=== PATIENT | male | born 1965 | race Caucasian/White ===

== ENCOUNTER 2019-12-11 09:48 | Emergency (ER) | payer OTHER ==
[~2019-12-11] VITALS: Ht 187.9 cm; Wt 83.9 kg
--- NOTE | 2019-12-11 10:10 | NUR ---
CCOLLAR PLACED AT THIS TIME
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
--- NOTE | 2019-12-11 10:53 | NUR ---
CCOLLAR CLEARED AT 1054
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
[2019-12-11] MEDS ORDERED: CYCL10TA9 PO (11:15)
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
[2019-12-11 11:18] VITALS: BP 136/99
== END 2019-12-11 11:18 | disposition home or self-care (01) ==
LOC: EDUNIT# 09:48 → ER 09:50
DX: M62.830 Muscle spasm of back (principal); M54.2 Cervicalgia; R40.2142 Coma scale, eyes open, spontaneous, at arrival to emergency department; R40.2252 Coma scale, best verbal response, oriented, at arrival to emergency department; R40.2362 Coma scale, best motor response, obeys commands, at arrival to emergency department; V49.50XA Passenger injured in collision with unspecified motor vehicles in traffic accident, initial encounter
CPT/HCPCS: 71101; 72125

== ENCOUNTER 2021-07-07 12:12 | Observation (INO) | payer BC ==
[~2021-07-07] VITALS: Ht 190.5 cm; Wt 77.1 kg
[~2021-07-07 12:12] MED LIST: CYCL10TA25 PO
[2021-07-07] MEDS ORDERED: LIDOCAINE 2% VISCOUS 15 ML UDC PO ONE (12:30)
[2021-07-07] MEDS ORDERED: ANTACID SUSP 30 ML UDC (MYLANTA) PO ONE (12:30)
[2021-07-07] MEDS ORDERED: ASPIRIN 81 MG CHEW (CHILDREN'S ASA) PO ONE (12:30)
--- NOTE | 2021-07-07 12:30 | ED Chest Pain ---
General Chief Complaint: Chest Pain Stated Complaint: DIZZY Nursing Triage Note: PT AMB TO RM 3 WITH COMPLAINT OF SOA, LIGHTHEADED, DIZZY, AND CP. STATES STARTED A FEW DAYS AGO. Source: patient Exam Limitations: no limitations (LONI FAIR APRN) History of Present Illness Date Seen by Provider: Jul 07, 2021 Time Seen by Provider: 12:26 Initial Comments To ER by private vehicle with reports of 2 days of constant epigastric pain described as a band around his abdomen that radiates to his back. For the past couple of months when he gets out of the shower he becomes lightheaded and has to go sit down immediately. For the past couple of months he has had exertional dyspnea which is unusual for him. He feels lightheaded and has chest pain. He formerly drank about a 12 pack of beer per day but quit that about 6 months ago and has not had any to speak of since then. He takes carvedilol for blood pressure 6.25 mg and omeprazole for GERD. He has had an unintentional weight loss of about 10 pounds over the past 6 months but he attributes that to cessation of alcohol use. Primary care is Dr. Gross in [place]. Currently he rates his pain a 3 out of 10. Timing/Duration: getting worse Severity/Quality: aching Location: central Radiation: no radiation Activities at Onset: none Prior CP/Workup: no prior chest pain ASA po [employer] SYSTEM[employer] TECHNICIAN: No NTG SL [employer] SYSTEM[employer] TECHNICIAN: No Associated Symptoms: No nausea/vomiting; shortness of breath, weakness (LONI FAIR APRN) Allergies and Home Medications Allergies Coded Allergies: No Known Drug Allergies (Unverified , 12/11/19) Patient Home Medication List Home Medication List Reviewed: Yes (LONI FAIR APRN) Cyclobenzaprine HCl (Cyclobenzaprine HCl) 10 Mg Tablet, 10 MG PO Q8H PRN for SPASMS Prescribed by: CHENTE HOBSON on 12/11/19 3245 Review of Systems Review of Systems Constitutional: see HPI EENTM: No Symptoms Reported Respiratory: No Symptoms Reported Cardiovascular: No Symptoms Reported Gastrointestinal: See HPI, Abdominal Pain Genitourinary: No Symptoms Reported, See HPI Musculoskeletal: no symptoms reported Skin: no symptoms reported Psychiatric/Neurological: No Symptoms Reported Endocrine: No Symptoms Reported Hematologic/Lymphatic: No Symptoms Reported (LONI FAIR APRN) Past Ivpdybr-Gjsfhu-Sgnday Hx Patient Social History Tobacco Use?: No Use of E-Cig and/or Vaping dev: No Substance use?: No Alcohol Use?: No Pt feels they are or have been: No (LONI FAIR APRN) Immunizations Up To Date Tetanus Booster (TDap): Unknown PED Vaccines UTD: Yes (LONI FAIR APRN) Seasonal Allergies Seasonal Allergies: No (LONI FAIR APRN) Past Medical History Surgeries: Yes (prostate biospy) Respiratory: No Cardiac: No Neurological: No Genitourinary: No Gastrointestinal: No Musculoskeletal: No Endocrine: No HEENT: No Cancer: No Psychosocial: No Integumentary: No Blood Disorders: No (LONI FAIR APRN) Physical Exam Vital Signs Vital Signs - First Documented 07/07/21 12:18 Pulse 107 Resp 16 B/P (MAP) 122/84 (97) Pulse Ox 97 O2 Delivery Room Air (DIMITRIS GIRALDO MD) Vital Signs Capillary Refill : Less Than 3 Seconds (LONI FAIR APRN) Height, Weight, BMI Height: '" Weight: lbs. oz. kg; 21.00 BMI Method: General Appearance: No Apparent Distress, WD/WN HEENT: PERRL/EOMI, TMs Normal Neck: Full Range of Motion, Normal Inspection Respiratory: No Accessory Muscle Use, No Respiratory Distress Cardiovascular: Tachycardia (rate 112 sinus) Gastrointestinal: Non Tender, Soft Extremity: Normal Capillary Refill, Normal Inspection Neurologic/Psychiatric: Alert, Oriented x3 Skin: Normal Color, Warm/Dry (LONI FAIR APRN) Focused Exam Lactate Level 07/07/21 12:26: Lactic Acid Level 1.29 (DIMITRIS GIRALDO MD) Lactic Acid Level Laboratory Tests Test 07/07/21 12:26 Lactic Acid Level 1.29 MMOL/L (0.50-2.00) (DIMITRIS GIRALDO MD) Progress/Results/Core Measures Results/Orders Lab Results Laboratory Tests Test 07/07/21 12:26 Range/Units White Blood Count 19.7 H 4.3-11.0 10^3/uL Red Blood Count 3.96 L 4.30-5.52 10^6/uL Hemoglobin 7.7 L 13.3-17.7 g/dL Hematocrit 25 L 40-54 % Mean Corpuscular Volume 64 L 80-99 fL Mean Corpuscular Hemoglobin 19 L 25-34 pg Mean Corpuscular Hemoglobin Concent 30 L 32-36 g/dL Red Cell Distribution Width 16.8 H 10.0-14.5 % Platelet Count 549 H 130-400 10^3/uL Mean Platelet Volume 9.1 9.0-12.2 fL Immature Granulocyte % (Auto) 1 % Neutrophils (%) (Auto) 82 H 42-75 % Lymphocytes (%) (Auto) 6 L 12-44 % Monocytes (%) (Auto) 11 0-12 % Eosinophils (%) (Auto) 0 0-10 % Basophils (%) (Auto) 0 0-10 % Neutrophils # (Auto) 16.1 H 1.8-7.8 10^3/uL Lymphocytes # (Auto) 1.3 1.0-4.0 10^3/uL Monocytes # (Auto) 2.1 H 0.0-1.0 10^3/uL Eosinophils # (Auto) 0.0 0.0-0.3 10^3/uL Basophils # (Auto) 0.1 0.0-0.1 10^3/uL Immature Granulocyte # (Auto) 0.2 H 0.0-0.1 10^3/uL Neutrophils % (Manual) 83 % Lymphocytes % (Manual) 9 % Monocytes % (Manual) 5 % Basophils % (Manual) 1 % Band Neutrophils 2 % Hypochromasia MODERATE Microcytosis MARKED Prothrombin Time 18.4 H 12.2-14.7 SEC INR Comment 1.5 H 0.8-1.4 Activated Partial Thromboplast Time 50 H 24-35 SEC D-Dimer 2.98 H 0.00-0.49 UG/ML Sodium Level 132 L 135-145 MMOL/L Potassium Level 4.2 3.6-5.0 MMOL/L Chloride Level 98 98-107 MMOL/L Carbon Dioxide Level 19 L 21-32 MMOL/L Anion Gap 15 H 5-14 MMOL/L Blood Urea Nitrogen 12 7-18 MG/DL Creatinine 0.90 0.60-1.30 MG/DL Estimat Glomerular Filtration Rate 102 BUN/Creatinine Ratio 13 Glucose Level 100 70-105 MG/DL Lactic Acid Level 1.29 0.50-2.00 MMOL/L Calcium Level 9.0 8.5-10.1 MG/DL Corrected Calcium 9.5 8.5-10.1 MG/DL Magnesium Level 2.0 1.6-2.4 MG/DL Total Bilirubin 2.3 H 0.1-1.0 MG/DL Aspartate Amino Transf (AST/SGOT) 84 H 5-34 U/L Alanine Aminotransferase (ALT/SGPT) 38 0-55 U/L Alkaline Phosphatase 267 H 40-136 U/L Myoglobin 32.9 10.0-92.0 NG/ML Troponin I < 0.028 <0.028 NG/ML B-Type Natriuretic Peptide 57.5 <100.0 PG/ML Total Protein 7.6 6.4-8.2 GM/DL Albumin 3.4 3.2-4.5 GM/DL Lipase 19 8-78 U/L (DIMITRIS GIRALDO MD) Vital Signs/I&O 07/07/21 12:18 Pulse 107 Resp 16 B/P (MAP) 122/84 (97) Pulse Ox 97 O2 Delivery Room Air (DIMITRIS GIRALDO MD) Blood Pressure Mean: 97 Departure Communication (Admissions) Time/Spoke to Admitting Phy: 14:[address] Holbrook, will admit, consult hematology oncology and surgery. I spoke with Dr. Roper and he agrees to consult. 1229-EKG shows sinus tach rate of 103. No ST segment changes. 1427-discussed the CT findings with patient and his . Discussed the findings of suspected rectal/colon cancer with metastasis to liver and lung. This would explain his symptoms as would the anemia. informs me that he has suspected this. I asked what made them a suspect this and patient tells me that he has been having frequent bloody stools over the course of the past 1 to 2 years. He has never had a colonoscopy. His pain is controlled at this time. He will need admitted for surgical and oncologic evaluation. We did do a type and cross for packed red cell transfusion. Blood cultures are pending. At this point he does wish to be full CODE STATUS. Given the advanced nature of the disease I will have palliative care consult on him as well. In light of his rectal bleeding anticoagulant for DVT prophylaxis is contraindicated. 1434-I spoke with Dr. Rock from cancer center. She took his name and phone number and will have the cancer center call to make an appointment for him. She does not really need to consult during this hospitalization she says, she would need to consult on him after the colonoscopy with biopsy and pathology reports. Given his exertional dyspnea, his tachycardia, his leukocytosis and low he moglobin, as well as metastatic cancer as new diagnosis this is not something I can in good conscience send home on a Saturday evening. Subsequently, I'm admitting. (LONI FAIR APRN) Impression Primary Impression: Metastatic cancer Disposition: ADMITTED INPATIENT Condition: Stable Admissions Decision to Admit Reason: Admit from ER (General) Decision to Admit/Date: Jul 07, 2021 Time/Decision to Admit Time: 14:26 (LONI FAIR APRN) Departure-Patient Inst. Referrals: Kelsy GROSS DO (PCP/Family) Primary Care Physician LONI FAIR APRN Jul 07, 2021 12:30 DIMITRIS GIRALDO MD Jul 08, 2021 08:48
[2021-07-07 12:32] LABS: BASOPHILS # (AUTO) 0.1 10^3/uL (0.0-0.1); BASOPHILS % (AUTO) 0 % (0-10); EOSINOPHILS % (AUTO) 0 % (0-10); HEMATOCRIT 25 % (40-54); HEMOGLOBIN 7.7 g/dL (13.3-17.7); LYMPHOCYTES # (AUTO) 1.3 10^3/uL (1.0-4.0); LYMPHOCYTES % (AUTO) 6 % (12-44); MEAN CORPUSCULAR HEMOGLOBIN 19 pg (25-34); MEAN CORPUSCULAR HGB CONC 30 g/dL (32-36); MEAN CORPUSCULAR VOLUME 64 fL (80-99); MEAN PLATELET VOLUME 9.1 fL (9.0-12.2); MONOCYTES # (AUTO) 2.1 10^3/uL (0.0-1.0); MONOCYTES % (AUTO) 11 % (0-12); NEUTROPHILS # (AUTO) 16.1 10^3/uL (1.8-7.8); NEUTROPHILS % (AUTO) 82 % (42-75); PLATELET COUNT 549 10^3/uL (130-400); WHITE BLOOD COUNT 19.7 10^3/uL (4.3-11.0)
[2021-07-07 12:47] LABS: ALBUMIN 3.4 GM/DL (3.2-4.5); POTASSIUM 4.2 MMOL/L (3.6-5.0)
[2021-07-07 12:50] LABS: TOTAL PROTEIN 7.6 GM/DL (6.4-8.2)
[2021-07-07 12:51] LABS: BILIRUBIN,TOTAL 2.3 MG/DL (0.1-1.0); INR 1.5 (0.8-1.4); PROTHROMBIN TIME PATIENT 18.4 SEC (12.2-14.7)
[2021-07-07 12:53] LABS: CREATININE SERUM 0.9 MG/DL (0.60-1.30)
--- NOTE | 2021-07-07 12:55 | Diagnostic Imaging Report ---
EXAMINATION: Chest 1 view HISTORY: Chest pain COMPARISON: None available. FINDINGS: Heart size and pulmonary vasculature are normal. The lungs are clear without consolidation, pleural effusion, or pneumothorax. The osseous structures are intact. IMPRESSION: 1. No acute radiographic abnormality in the chest. Dictated by: Dictated on workstation # [id number]
[2021-07-07 13:14] LABS: BAND NEUTROPHILS 2 %; BASOPHILS % (MANUAL) 1 %; HYPOCHROMASIA MODERATE; LYMPHOCYTES % (MANUAL) 9 %; MICROCYTOSIS MARKED; MONOCYTES % (MANUAL) 5 %; NEUTROPHILS % (MANUAL) 83 %
[2021-07-07] MEDS ORDERED: IOHEXOL 350 MG/ML 100 ML (OMNIPAQUE 350) VIAL IV ONE (13:30)
[2021-07-07] MEDS ORDERED: NS 100 ML (IVPB) BAG IV ONE (13:30)
--- NOTE | 2021-07-07 14:11 | Diagnostic Imaging Report ---
EXAMINATION: CT angiography of the chest, CT of the abdomen and pelvis. TECHNIQUE: Contrast enhanced thin section helical images were obtained through the chest, abdomen and pelvis with intravenous contrast timed for the optimal opacification of the arterial structures of the chest per CTA protocol. Post-processing, reconstructions and interpretation of angiographic images of the vessels was performed. 3D MIP reconstructions were performed and reviewed. All CT scans use one or more of the following dose optimizing techniques: automated exposure control, MA and/or KvP adjustment based on a patient size and exam type, or iterative reconstruction. HISTORY: Chest and epigastric pain COMPARISON: None available. FINDINGS: Vascular: No filling defects within the pulmonary arteries. Thoracic aorta is normal in caliber. Normal Thyroid: The thyroid is normal. Mediastinum: Heart size is normal without significant pericardial effusion. No suspicious lymphadenopathy. Lungs and airways: The lungs are clear without consolidation, pleural effusion, or pneumothorax. There is a 0.8 cm left lower lobe pulmonary nodule (series 5 image 53). There is a right lower lobe subpleural pulmonary nodules measuring up to 0.4 cm on (series 5 image 79). The airways are normal. Solid organs: There are numerous hypoenhancing liver lesions present throughout the liver measuring up to 9.4 cm. The gallbladder is normal. There is no biliary ductal dilation. Pancreas is normal. Spleen is normal. Adrenal glands are normal. The kidneys are normal without hydronephrosis. Bowel: The stomach and small bowel are normal without obstruction. There is abnormal wall thickening and irregularity seen within the rectum and sigmoid colon. Stranding abuts the superior margin of the urinary bladder. A moderate amount of stool seen within the right hemicolon. The appendix is normal. Peritoneum: There is no intraperitoneal free fluid or free air. Triple subcentimeter mesorectal lymph nodes are present. There are a few subcentimeter iliac chain lymph nodes. There are a few retroperitoneal lymph nodes which are borderline enlarged measuring up to 0.9 cm short axis. Vasculature: Normal without aneurysm. Musculoskeletal: Degenerative changes of the spine without suspicious osseous lesion or compression fracture. Pelvis: The prostate gland is normal. The urinary bladder is normal. IMPRESSION: 1. Irregular wall thickening of the rectosigmoid colon is highly concerning for neoplasm. Recommend followup with colonoscopy. 2. Heterogeneously hypoenhancing lesions throughout the liver are highly concerning for hepatic metastatic disease. 3. Numerous mesorectal fascia, common iliac chain, and retroperitoneal lymph nodes are concerning for jessica metastasis. 4. Pulmonary nodules within the lower lungs are indeterminate because be seen with pulmonary metastasis. Recommend attention on follow-up imaging or evaluation with PET/CT. 5. No findings of pulmonary embolus. Critical finding Report was communicated to Livan Romero by Dr. Robbie Pope at 2:05 PM on 07/07/2021. Dictated by: Dictated on workstation # [id number]
[2021-07-07] MEDS ORDERED: LORazepam INJ 2 MG/ML (ATIVAN) VIAL IVP PRN (16:00)
[2021-07-07] MEDS ORDERED: ONDANSETRON 4 MG/2 ML (SDV) Z0FRAN IVP PRN (16:00)
[2021-07-07] MEDS ORDERED: fentaNYL INJ 100 MCG/2 ML AMP IVP PRN (16:00)
--- NOTE | 2021-07-07 16:34 | History & Physical-Hospitalist ---
History of Present Illness HPI/Chief Complaint Patient is a 55-year-old male with past medical history of hypertension who presented to the emergency department due to shortness of breath. He states that this has been going on for months but this past week he became more dyspneic on exertion. He states that he could hardly do anything without getting short of breath. He thought he had a fever this morning as well of 102. He also complains of bloody diarrhea every day. He states that has been going on for at least a year. He has had loss of appetite with weight loss that was unintentional. He denies any nausea or vomiting. In the emergency ro om CT chest abdomen and pelvis were done which revealed rectosigmoid colon thickening concerning for neoplasm with hypoenhancing lesions throughout the liver, numerous mesorectal fascia, and iliac chain and retroperitoneal lymph nodes and pulmonary nodules all concerning for metastatic disease. When informed of this news he stated he had thought he had had cancer and has been taking fenbendazole hoping it would treated. Source: patient Date Seen 07/07/21 Time Seen by a Provider: 16:29 Attending Physician Juaquin Shepherd MD PCP Kelsy Shell DO Referring Physician Date of Admission Jul 07, 2021 at 14:24 Home Medications & Allergies Home Medications Reviewed patient Home Medication Reconciliation performed by pharmacy medication reconciliations telecommunications switch technician and/or nursing. Patients Allergies have been reviewed. Allergies Allergies Coded Allergies No Known Drug Allergies (Unverified12/11/19) Past Jychtuj-Huwdsd-Ylannj Hx Patient Social History Marrital Status: Employed/Student: employed Tobacco Use?: Yes Smoking Status: Never a Smoker Smokeless type used: Chew Smokeless Tobacco Frequency: Current Someday User Use of E-Cig and/or Vaping dev: No Substance use?: No Alcohol Use?: No Additional Alcohol Comments: Quit drinking roughly 6 months ago Pt feels they are or have been: No Immunizations Up To Date Date of Influenza Vaccine: Dec 04, 2019 Tetanus Booster (TDap): Unknown PED Vaccines UTD: Yes Seasonal Allergies Seasonal Allergies: No Current Status Advance Directives: No Primary Language: Cymro Preferred Spoken Language: Cymro Past Medical History Surgeries: Orthopedic Hypertension Gastroesophageal Reflux Blood Disorders: No Family Medical History Reviewed Nursing Family Hx Cancer (Colon cancer in dad) Review of Systems Constitutional: No chills, No fever; malaise Respiratory: No see HPI; dyspnea on exertion, short of breath Cardiovascular: No chest pain, No edema Gastrointestinal: diarrhea, loss of appetite, melena Genitourinary: no symptoms reported Musculoskeletal: no symptoms reported Skin: no symptoms reported Psychiatric/Neurological: No Symptoms Reported Physical Exam Physical Exam Vital Signs Vital Signs - First Documented 07/07/21 07/07/21 07/08/21 12:18 19:05 08:35 Temp 37.5 Pulse 107 Resp 16 B/P (MAP) 122/84 (97) Pulse Ox 97 O2 Delivery Room Air O2 Flow Rate 10 Capillary Refill : Less Than 3 Seconds Height, Weight, BMI Height: '" Weight: lbs. oz. kg; 21.00 BMI Method: General Appearance: No Apparent Distress, WD/WN, Thin HEENT: PERRL/EOMI, Moist Mucous Membranes; No Scleral Icterus (L), No Scleral Icterus (R) Neck: Normal Inspection, Supple Respiratory: Lungs Clear, No Accessory Muscle Use, No Respiratory Distress Cardiovascular: Regular Rate, Rhythm, No Murmur Gastrointestinal: Normal Bowel Sounds, Non Tender, Soft Extremity: No Calf Tenderness, No Pedal Edema Neurologic/Psychiatric: Alert, Oriented x3, Normal Mood/Affect Skin: Warm/Dry, Jaundice Results Results/Procedures Labs Laboratory Tests 07/07/21 12:26 07/08/21 05:00 Patient resulted labs reviewed. Imaging: Reviewed Imaging Report Imaging [facility], [place] NAME: CHERYL MORRELL [facility] REC#: [id number] PT STATUS: REG ER : 1965 PHYSICIAN: LONI ROMERO SENIOR FUNCTIONAL ANALYST ADMIT DATE: 07/07/21/ER Signed Date of Exam:07/07/21 CT EV CHEST/NOANG ABD-PELV W EXAMINATION: CT angiography of the chest, CT of the abdomen and pelvis. TECHNIQUE: Contrast enhanced thin section helical images were obtained through the chest, abdomen and pelvis with intravenous contrast timed for the optimal opacification of the arterial structures of the chest per CTA protocol. Post-processing, reconstructions and interpretation of angiographic images of the vessels was performed. 3D MIP reconstructions were performed and reviewed. All CT scans use one or more of the following dose optimizing techniques: automated exposure control, MA and/or KvP adjustment based on a patient size and exam type, or iterative reconstruction. HISTORY: Chest and epigastric pain COMPARISON: None available. FINDINGS: Vascular: No filling defects within the pulmonary arteries. Thoracic aorta is normal in caliber. Normal Thyroid: The thyroid is normal. Mediastinum: Heart size is normal without significant pericardial effusion. No suspicious lymphadenopathy. Lungs and airways: The lungs are clear without consolidation, pleural effusion, or pneumothorax. There is a 0.8 cm left lower lobe pulmonary nodule (series 5 image 53). There is a right lower lobe subpleural pulmonary nodules measuring up to 0.4 cm on (series 5 image 79). The airways are normal. Solid organs: There are numerous hypoenhancing liver lesions present throughout the liver measuring up to 9.4 cm. The gallbladder is normal. There is no biliary ductal dilation. Pancreas is normal. Spleen is normal. Adrenal glands are normal. The kidneys are normal without hydronephrosis. Bowel: The stomach and small bowel are normal without obstruction. There is abnormal wall thickening and irregularity seen within the rectum and sigmoid colon. Stranding abuts the superior margin of the urinary bladder. A moderate amount of stool seen within the right hemicolon. The appendix is normal. Peritoneum: There is no intraperitoneal free fluid or free air. Triple subcentimeter mesorectal lymph nodes are present. There are a few subcentimeter iliac chain lymph nodes. There are a few retroperitoneal lymph nodes which are borderline enlarged measuring up to 0.9 cm short axis. Vasculature: Normal without aneurysm. Musculoskeletal: Degenerative changes of the spine without suspicious osseous lesion or compression fracture. Pelvis: The prostate gland is normal. The urinary bladder is normal. IMPRESSION: 1. Irregular wall thickening of the rectosigmoid colon is highly concerning for neoplasm. Recommend followup with colonoscopy. 2. Heterogeneously hypoenhancing lesions throughout the liver are highly concerning for hepatic metastatic disease. 3. Numerous mesorectal fascia, common iliac chain, and retroperitoneal lymph nodes are concerning for jessica metastasis. 4. Pulmonary nodules within the lower lungs are indeterminate because be seen with pulmonary metastasis. Recommend attention on follow-up imaging or evaluation with PET/CT. 5. No findings of pulmonary embolus. Critical finding Report was communicated to Loni Romero by Dr. Robbie Avery at 2:05 PM on 07/07/2021. Dictated by: Dictated on workstation # [id number] Dict: 07/07/21 1355 Trans: 07/07/21 1442 CVB [id number] Interpreted by: KESHAV AVERY DO Electronically signed by: KESHAV AEVRY DO 07/07/21 1442 [facility] [place], [place] NAME: CHERYL MORRELL [facility] REC#: [id number] PT STATUS: REG ER : 1965 PHYSICIAN: LONI ROMERO SENIOR FUNCTIONAL ANALYST ADMIT DATE: 07/07/21/ER Signed Date of Exam:07/07/21 CHEST 1 VIEW, AP/PA ONLY EXAMINATION: Chest 1 view HISTORY: Chest pain COMPARISON: None available. FINDINGS: Heart size and pulmonary vasculature are normal. The lungs are clear without consolidation, pleural effusion, or pneumothorax. The osseous structures are intact. IMPRESSION: 1. No acute radiographic abnormality in the chest. Dictated by: Dictated on workstation # [id number] Dict: 07/07/21 1255 Trans: 07/07/21 1331 CV [id number] Interpreted by: KESHAV AVERY DO Electronically signed by: KESHAV AVERY DO 07/07/21 1331 Assessment/Plan Admission Diagnosis Metastatic cancer Admission Status: Observation Assessment and Plan Metastatic cancer- new diagnosis Microcytic Anemia likely due to cancer Hyperbilirubinemia Transaminitis Etiology unknown at this time Bowel prep ordered for colonoscopy per Dr Roper Discussed with Dr Roper who plans to scope him tomorrow Hopefully home tomorrow if scope goes well T&S for possible transfusion ER 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 Loni Romero graciously discussed case with Dr Rock who will set up follow up at the cancer center for patient HTN BP well controlled, hold coreg DVT ppx: SCD only due to scope tomorrow Diagnosis/Problems Diagnosis/Problems (1) Essential (primary) hypertension (2) Microcytic anemia (3) Thrombocytosis (4) Transaminitis (5) Hyperbilirubinemia (6) Metastatic cancer Status: Acute Qualifiers: Area of secondary neoplastic involvement: respiratory structure Respiratory structure secondary neoplasm location: metastatic to lung Laterality: bilateral Qualified Codes: C78.01 - Secondary malignant neoplasm of right lung; C78.02 - Secondary malignant neoplasm of left lung (7) Metastases to the liver (8) Metastasis of unknown primary (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
[2021-07-07] MEDS ORDERED: polyethylene glycoL Bowel Prep(MIRALAX) 238 GM PO SCH (18:00)
[2021-07-07] MEDS ORDERED: BISACODYL 5 MG (DULCOLAX) TABLET PO ONE (18:15)
[2021-07-07] MEDS ORDERED: BISACODYL 5 MG (DULCOLAX) TABLET PO NR (18:30)
--- NOTE | 2021-07-07 19:02 | Consultation - Surgery ---
NANI MANJARREZ 07/07/21 190: History of Present Illness History of Present Illness Patient Consulted On(damon/time) 07/07/21 19:01 Date Seen by Provider: Jul 07, 2021 Time Seen by Provider: 17:30 Reason for Visit: Abdominal pain History of Present Illness Mr. Posey is a 55 year old male with a family history of colon cancer. General surgery was consulted due to abnormal CT findings suggest colonic neoplasm. Patient reports he has had bloody stools off and on for about a year with vague abdominal pain. He presented to the ED with abdominal pain and shortness of breath where a CT was performed. CT showed irregular wall thickening of the rectosigmoid colon highly concerning for neoplasm. Also showed hypoenhancing lesions of the liver suggestive of hepatic metastatic disease. Numerous lymph nodes concerning for acacia metastasis were visualized as well. Allergies and Home Medications Allergies Coded Allergies: No Known Drug Allergies (Unverified , 12/11/19) Patient Home Medication List Cyclobenzaprine HCl (Cyclobenzaprine HCl) 10 Mg Tablet, 10 MG PO Q8H PRN for MUSCLE SPASMS Prescribed by: LUCY YODER on 07/08/21 1600 Discontinued Medications Cyclobenzaprine HCl (Cyclobenzaprine HCl) 10 Mg Tablet, 10 MG PO Q8H PRN for SPASMS Discontinued Reason: Duplicate Order Prescribed by: CHENTE HOBSON on 12/11/19 1115 Past Sdmzlrd-Lnbqad-Ewldmy Hx Patient Social History Smoking Status: Never a Smoker Type Used: Smokeless Tobacco Recent Hopitalizations: No Alcohol Use?: Yes Have you traveled recently?: No Immunizations Up To Date Tetanus Booster (TDap): Unknown PED Vaccines UTD: Yes Date of Influenza Vaccine: Dec 04, 2019 Seasonal Allergies Seasonal Allergies: No Surgeries History of Surgeries: Yes (prostate biospy) Surgeries: Orthopedic Respiratory History of Respiratory Disorde: No Cardiovascular History of Cardiac Disorders: No Cardiac Disorders: Hypertension Neurological History of Neurological Disord: No Genitourinary History of Genitourinary Disor: No Gastrointestinal History of Gastrointestinal Di: No Gastrointestinal Disorders: Gastroesophageal Reflux Musculoskeletal History of Musculoskeletal Dis: No Endocrine History of Endocrine Disorders: No HEENT History of HEENT Disorders: No Cancer History of Cancer: No Psychosocial History of Psychiatric Problem: No Integumentary History of Skin or Integumenta: No Blood Transfusions History of Blood Disorders: No Family Medical History Significant Family History: Cancer (Colon cancer in dad) Review of Systems-General Constitutional: No chills, No fever Respiratory: No cough; short of breath Cardiovascular: No chest pain, No palpitations Gastrointestinal: abdominal pain; No nausea, No vomiting Physical Exam-General Problems Physical Exam Vital Signs Vital Signs - First Documented 07/07/21 12:18 Pulse 107 Resp 16 B/P (MAP) 122/84 (97) Pulse Ox 97 O2 Delivery Room Air Capillary Refill : Less Than 3 Seconds General Appearance: WD/WN, no apparent distress HEENT: PERRL/EOMI; No pale conjunctivae (R), No pale conjunctivae (L) Respiratory: no respiratory distress, no accessory muscle use Cardiovascular: normal peripheral pulses, regular rate, rhythm Peripheral Pulses: 2+ Radial Pulses (R), 2+ Radial Pulses (L) Gastrointestinal: soft, no organomegaly; No distended, No guarding Neurologic/Psychiatric: no motor/sensory deficits, alert, oriented x 3, other (Anxious) Skin: normal color, warm/dry Data Review Labs Laboratory Tests 07/07/21 12:26: White Blood Count 19.7H, Red Blood Count 3.96L, Hemoglobin 7.7L, Hematocrit 25L, Mean Corpuscular Volume 64L, Mean Corpuscular Hemoglobin 19L, Mean Corpuscular Hemoglobin Concent 30L, Red Cell Distribution Width 16.8H, Platelet Count 549H, Mean Platelet Volume 9.1, Immature Granulocyte % (Auto) 1, Neutrophils (%) (Auto) 82H, Lymphocytes (%) (Auto) 6L, Monocytes (%) (Auto) 11, Eosinophils (%) (Auto) 0, Basophils (%) (Auto) 0, Neutrophils # (Auto) 16.1H, Lymphocytes # (Auto) 1.3, Monocytes # (Auto) 2.1H, Eosinophils # (Auto) 0.0, Basophils # (Auto) 0.1, Immature Granulocyte # (Auto) 0.2H, Neutrophils % (Manual) 83, Lymphocytes % (Manual) 9, Monocytes % (Manual) 5, Basophils % (Manual) 1, Band Neutrophils 2, Hypochromasia MODERATE, Microcytosis MARKED, Prothrombin Time 18.4H, INR Comment 1.5H, Activated Partial Thromboplast Time 50H, D-Dimer 2.98H, Sodium Level 132L, Potassium Level 4.2, Chloride Level 98, Carbon Dioxide Level 19L, Anion Gap 15H, Blood Urea Nitrogen 12, Creatinine 0.90, Estimat Glomerular Filtration Rate 102, BUN/Creatinine Ratio 13, Glucose Level 100, Lactic Acid Level 1.29, Calcium Level 9.0, Corrected Calcium 9.5, Magnesium Level 2.0, Total Bilirubin 2.3H, Aspartate Amino Transf (AST/SGOT) 84H, Alanine Aminotransferase (ALT/SGPT) 38, Alkaline Phosphatase 267H, Myoglobin 32.9, Troponin I < 0.028, B- Type Natriuretic Peptide 57.5, Total Protein 7.6, Albumin 3.4, Lipase 19 Radiology Date of Exam:07/07/21 CT EV CHEST/NOANG ABD-PELV W EXAMINATION: CT angiography of the chest, CT of the abdomen and pelvis. TECHNIQUE: Contrast enhanced thin section helical images were obtained through the chest, abdomen and pelvis with intravenous contrast timed for the optimal opacification of the arterial structures of the chest per CTA protocol. Post-processing, reconstructions and interpretation of angiographic images of the vessels was performed. 3D MIP reconstructions were performed and reviewed. All CT scans use one or more of the following dose optimizing techniques: automated exposure control, MA and/or KvP adjustment based on a patient size and exam type, or iterative reconstruction. HISTORY: Chest and epigastric pain COMPARISON: None available. FINDINGS: Vascular: No filling defects within the pulmonary arteries. Thoracic aorta is normal in caliber. Normal Thyroid: The thyroid is normal. Mediastinum: Heart size is normal without significant pericardial effusion. No suspicious lymphadenopathy. Lungs and airways: The lungs are clear without consolidation, pleural effusion, or pneumothorax. There is a 0.8 cm left lower lobe pulmonary nodule (series 5 image 53). There is a right lower lobe subpleural pulmonary nodules measuring up to 0.4 cm on (series 5 image 79). The airways are normal. Solid organs: There are numerous hypoenhancing liver lesions present throughout the liver measuring up to 9.4 cm. The gallbladder is normal. There is no biliary ductal dilation. Pancreas is normal. Spleen is normal. Adrenal glands are normal. The kidneys are normal without hydronephrosis. Bowel: The stomach and small bowel are normal without obstruction. There is abnormal wall thickening and irregularity seen within the rectum and sigmoid colon. Stranding abuts the superior margin of the urinary bladder. A moderate amount of stool seen within the right hemicolon. The appendix is normal. Peritoneum: There is no intraperitoneal free fluid or free air. Triple subcentimeter mesorectal lymph nodes are present. There are a few subcentimeter iliac chain lymph nodes. There are a few retroperitoneal lymph nodes which are borderline enlarged measuring up to 0.9 cm short axis. Vasculature: Normal without aneurysm. Musculoskeletal: Degenerative changes of the spine without suspicious osseous lesion or compression fracture. Pelvis: The prostate gland is normal. The urinary bladder is normal. IMPRESSION: 1. Irregular wall thickening of the rectosigmoid colon is highly concerning for neoplasm. Recommend followup with colonoscopy. 2. Heterogeneously hypoenhancing lesions throughout the liver are highly concerning for hepatic metastatic disease. 3. Numerous mesorectal fascia, common iliac chain, and retroperitoneal lymph nodes are concerning for acacia metastasis. 4. Pulmonary nodules within the lower lungs are indeterminate because be seen with pulmonary metastasis. Recommend attention on follow-up imaging or evaluation with PET/CT. 5. No findings of pulmonary embolus. Critical finding Assessment/Plan Assessment/Plan Assessment/Plan Assessment: Metastatic cancer - Likely colonic in origin - Acacia metastasis noted on CT - Large hepatic masses noted Hematochezia - on and off for [address] - rectosigmoid colonic wall thickening Shortness of breath Abdominal pain Plan: Patient doing bowel prep tonight Plan for colonoscopy in the morning Reviewed plan going forward and possible treatment options from here. Patient verbalized understanding of the process Likely d/c tomorrow after colonoscopy with f/u with heme/onc Clinical Quality Measures AMI/AHF: ASA po Prior to arrival: No JAYNE THORNTON DO 07/08/21 0903: History of Present Illness History of Present Illness History of Present Illness Also requested by Dr. Shepherd due to metastatic cancer likely rectosigmoid due to abnormal CT scan. Patient is a 55-year-old male who presented to the emergency department due to some shortness of breath and vague abdominal pain. Patient states has been having bloody stools on and off for about 1 year. He states that shortness of breath since being admitted has improved. Nothing was seems to make it better or worse that he knew of. The abdominal pain he states is vague just kind of diffuse. Very tolerable. Nothing seems to make it better or worse. Patient has family history of colon cancer. He is assumed that he has had cancer for about the last year but never sought to seek medical attention. He started taking fenbendazole in order to try to treat his symptoms. Patient with no other complaints at this time. Denies any nausea vomiting fever sweats chills shortness of breath or chest pain. Patient CT scan demonstrating irregular wall thickening of the rectosigmoid area with metastatic disease of th e acacia and liver. Allergies and Home Medications Allergies Coded Allergies: No Known Drug Allergies (Unverified , 12/11/19) Patient Home Medication List Home Medication List Reviewed: Yes Cyclobenzaprine HCl (Cyclobenzaprine HCl) 10 Mg Tablet, 10 MG PO Q8H PRN for MUSCLE SPASMS Prescribed by: LUCY YODER on 07/08/21 1600 Discontinued Medications Cyclobenzaprine HCl (Cyclobenzaprine HCl) 10 Mg Tablet, 10 MG PO Q8H PRN for SPASMS Discontinued Reason: Duplicate Order Prescribed by: CHENTE HOBSON on 12/11/19 1115 Past Auwdgvc-Cahgwp-Bmuids Hx Reviewed Nursing Assessment Reviewed/Agree w Nursing PMH: Yes Family Medical History Significant Family History: Heart Disease, Cancer Review of Systems-General Constitutional: No chills, No fever, No weakness Respiratory: No cough; short of breath Cardiovascular: No chest pain, No palpitations Gastrointestinal: abdominal pain; No nausea, No vomiting Genitourinary: No decreased output Musculoskeletal: No back pain, No joint pain Skin: No change in color, No change in hair/nails Psychiatric/Neurological: Denies Anxiety, Denies Depressed, Denies Emotional Problems All Other Systems Reviewed Negative Unless Noted: Yes (Negative excepted noted.) Physical Exam-General Problems Physical Exam General Appearance: WD/WN, no apparent distress ( ) HEENT: PERRL/EOMI, normal ENT inspection Neck: non-tender, supple Respiratory: chest non-tender, no respiratory distress Cardiovascular: regular rate, rhythm, no JVD Gastrointestinal: non tender, soft; No distended, No guarding, No tenderness Rectal: deferred Back: normal inspection, no CVA tenderness Extremities: non-tender, normal inspection Neurologic/Psychiatric: no motor/sensory deficits, alert, oriented x 3 Skin: warm/dry, jaundice (slight) Lymphatic: no adenopathy Assessment/Plan Assessment/Plan Assessment/Plan Metastatic cancer - Likely colonic in origin - Acacia metastasis noted on CT - Large hepatic masses noted Hematochezia - on and off for [address] - rectosigmoid colonic wall thickening Shortness of breath Abdominal pain generalized, minimal Patient doing bowel prep tonight Plan for colonoscopy in the morning Reviewed plan going forward and possible treatment options from here. Patient verbalized understanding of the process need f/u with heme/onc as well. Patient understands risks and benefits of colonoscopy and wishes to proceed. NPO after midnight. Supervisory-Addendum Brief Verification & Attestation Participated in pt care: history, MDM, physical Personally performed: exam, history, MDM, supervision of care Care discussed with: Medical Student Procedures: n/a Results interpretation: Verified all documentation Verification and Attestation of Medical Student E/M Service A medical student performed and documented this service in my presence. I reviewed and verified all information documented by the medical student and made modifications to such information, when appropriate. I personally performed the physical exam and medical decision making. Jayne Thornton, Jul 07, 2021,20:36 NANI MANJARREZ Jul 07, 2021 19:02 JAYNE THORNTON DO Jul 08, 2021 09:03
[2021-07-07 19:05] VITALS: BP 107/71
[2021-07-08] VITALS (10 sets, daily range): BP systolic 83–129; BP diastolic 52–83
[2021-07-08 05:46] LABS: TRIGLYCERIDES 60 MG/DL (<150); VLDL CHOLESTEROL 12 MG/DL (5-40)
[2021-07-08 05:51] LABS: CHOLESTEROL 93 MG/DL (< 200); HDL CHOLESTEROL 21 MG/DL (40-60)
--- NOTE | 2021-07-08 07:48 | Progress Note - Surgery ---
NANI MANJARREZ 07/08/21 0748: Subjective Date Seen by a Provider: Jul 08, 2021 Time Seen by a Provider: 07:06 Subjective/Events-last exam Mr. Posey is being followed for abnormal CT and possible malignancy. He is scheduled for a colonoscopy this morning. He has never had a colonoscopy. He reports his prep went okay last night. He said his stools are completely liquid but they are still brown. Patient denies any pain this morning. Patient has no other concerns or complaints. Review of Systems General: No Chills, No Fatigue HEENT: No Head Aches, No Visual Changes Pulmonary: No Dyspnea, No Cough Cardiovascular: No: Chest Pain, Palpitations Gastrointestinal: No: Nausea, Vomiting, Abdominal Pain Neurological: No: Confusion Focused Exam Lactate Level 07/07/21 12:26: Lactic Acid Level 1.29 Objective Exam Vital Signs Date Time Temp Pulse Resp B/P (MAP) Pulse Ox O2 Delivery O2 Flow Rate FiO2 07/08/21 04:00 37.7 110 18 110/70 (83) 95 Room Air 07/08/21 00:00 38.6 112 18 107/70 (82) 95 Room Air 07/07/21 20:00 Room Air 07/07/21 19:05 37.5 104 18 107/71 (83) 99 Room Air 07/07/21 15:45 94 19 115/78 98 Room Air 07/07/21 15:39 Room Air 07/07/21 12:18 107 16 122/84 (97) 97 Room Air I & O 07/08/21 07:00 Intake Total 1440 ml Balance 1440 ml Capillary Refill : Less Than 3 Seconds General Appearance: No Apparent Distress, WD/WN, Thin HEENT: PERRL/EOMI, Moist Mucous Membranes Neck: Normal Inspection, Non Tender, Supple Respiratory: Chest Non Tender, Lungs Clear, Normal Breath Sounds, No Accessory Muscle Use, No Respiratory Distress Cardiovascular: No Edema, No Murmur, Normal Peripheral Pulses, Tachycardia Peripheral Pulses: 2+ Radial Pulses (R), 2+ Radial Pulses (L) Gastrointestinal: non tender, soft, no organomegaly; No distended, No guarding Extremity: Non Tender, No Calf Tenderness, No Pedal Edema Neurologic/Psychiatric: Alert, Oriented x3, No Motor/Sensory Deficits, Normal Mood/Affect, Depressed Affect (Patient did not make eye contact. Flat affect. Short answers. Appeared anxious.) Skin: Normal Color, Warm/Dry Results Lab Laboratory Tests 07/07/21 12:26: White Blood Count 19.7H, Red Blood Count 3.96L, Hemoglobin 7.7L, Hematocrit 25L, Mean Corpuscular Volume 64L, Mean Corpuscular Hemoglobin 19L, Mean Corpuscular Hemoglobin Concent 30L, Red Cell Distribution Width 16.8H, Platelet Count 549H, Mean Platelet Volume 9.1, Immature Granulocyte % (Auto) 1, Neutrophils (%) (Auto) 82H, Lymphocytes (%) (Auto) 6L, Monocytes (%) (Auto) 11, Eosinophils (%) (Auto) 0, Basophils (%) (Auto) 0, Neutrophils # (Auto) 16.1H, Lymphocytes # (Auto) 1.3, Monocytes # (Auto) 2.1H, Eosinophils # (Auto) 0.0, Basophils # (Auto) 0.1, Immature Granulocyte # (Auto) 0.2H, Neutrophils % (Manual) 83, Lymphocytes % (Manual) 9, Monocytes % (Manual) 5, Basophils % (Manual) 1, Band Neutrophils 2, Hypochromasia MODERATE, Microcytosis MARKED, Prothrombin Time 18.4H, INR Comment 1.5H, Activated Partial Thromboplast Time 50H, D-Dimer 2.98H, Sodium Level 132L, Potassium Level 4.2, Chloride Level 98, Carbon Dioxide Level 19L, Anion Gap 15H, Blood Urea Nitrogen 12, Creatinine 0.90, Estimat Glomerular Filtration Rate 102, BUN/Creatinine Ratio 13, Glucose Level 100, Lactic Acid Level 1.29, Calcium Level 9.0, Corrected Calcium 9.5, Magnesium Level 2.0, Total Bilirubin 2.3H, Aspartate Amino Transf (AST/SGOT) 84H, Alanine Aminotransferase (ALT/SGPT) 38, Alkaline Phosphatase 267H, Myoglobin 32.9, Troponin I < 0.028, B- Type Natriuretic Peptide 57.5, Total Protein 7.6, Albumin 3.4, Lipase 19 07/08/21 05:00: Triglycerides Level 60, Cholesterol Level 93, LDL Cholesterol Direct 67, VLDL Cholesterol 12, HDL Cholesterol 21L Assessment/Plan Assessment/Plan Assessment/Plan Assessment: Metastatic cancer - Likely colonic in origin - Acacia metastasis noted on CT - Large hepatic masses noted Hematochezia - on and off for [address] - rectosigmoid colonic wall thickening Shortness of breath Abdominal pain Plan: Patient underwent bowel prep last night Colonoscopy this morning at 0800 Reviewed plan going forward and possible treatment options from here. Patient verbalized understanding of the process Likely d/c tomorrow after colonoscopy with f/u with heme/onc Clinical Quality Measures AMI/AHF: ASA po Prior to arrival: MICHAEL Moreno DO 07/08/21 0808: Subjective Subjective/Events-last exam Patient tolerated prep. No abdominal pain. No nausea or vomiting. Denies any new complaints. Denies fever sweats chills shortness of breath or chest pain. Objective Exam General Appearance: No Apparent Distress, WD/WN, Thin HEENT: PERRL/EOMI, Normal ENT Inspection Neck: Normal Inspection, Non Tender, Supple Respiratory: Chest Non Tender, No Accessory Muscle Use, No Respiratory Distress Cardiovascular: Regular Rate, Rhythm, No JVD Gastrointestinal: non tender, soft Extremity: Non Tender, No Calf Tenderness Neurologic/Psychiatric: Alert, Oriented x3, Depressed Affect Skin: Normal Color, Warm/Dry Lymphatic: No Adenopathy Assessment/Plan Assessment/Plan Assessment/Plan Metastatic cancer - Likely colonic in origin - Acacia metastasis noted on CT - Large hepatic masses noted Hematochezia - on and off for [address] - rectosigmoid colonic wall thickening Shortness of breath Abdominal pain-improved Patient underwent bowel prep last night Colonoscopy this morning Reviewed plan going forward and possible treatment options from here. Patient verbalized understanding of the process need f/u with heme/onc if not diagnostic would have ir biopsy liver Supervisory-Addendum Brief Verification & Attestation Participated in pt care: history, MDM, physical Personally performed: exam, history, MDM, supervision of care Care discussed with: Medical Student Procedures: n/a Results interpretation: Verified all documentation Verification and Attestation of Medical Student E/M Service A medical student performed and documented this service in my presence. I reviewed and verified all information documented by the medical student and made modifications to such information, when appropriate. I personally performed the physical exam and medical decision making. Michael Thornton, Jul 08, 2021,08:08 NANI MANJARREZ Jul 08, 2021 07:48 MICHAEL THORNTON DO Jul 08, 2021 08:08
[2021-07-08] MEDS ORDERED: LACTATED RINGERS 1,000 ML IV ONE ×2 (07:56→08:15)
[2021-07-08] MEDS ORDERED: PROPOFOL INJECTION 50 ML IV ONE (08:02)
--- NOTE | 2021-07-08 08:36 | Progress Note-Post Operative ---
Post-Operative Progess Note Surgeon (s)/Rn Physician Office (s) Surgeon JAYNE THORNTON DO Rn Physician Office: na Pre-Operative Diagnosis abnormal ct Post-Operative Diagnosis rectosigmoid mass nearly completely obstructing Procedure & Operative Findings Date of Procedure 07/08/21 Procedure Performed/Findings flex sig c old biopsies Anesthesia Type per wire temperer Estimated Blood Loss Estimated blood loss (mL): scant Specimens/Packing Specimens Removed rectosigmoid mass JAYNE THORNTON DO Jul 08, 2021 08:36
[2021-07-08 09:34] LABS: HEMATOCRIT 24 % (40-54); MEAN CORPUSCULAR HEMOGLOBIN 19 pg (25-34); MEAN CORPUSCULAR HGB CONC 29 g/dL (32-36); MEAN CORPUSCULAR VOLUME 66 fL (80-99); MEAN PLATELET VOLUME 10.5 fL (9.0-12.2); PLATELET COUNT 506 10^3/uL (130-400); WHITE BLOOD COUNT 17.7 10^3/uL (4.3-11.0)
[2021-07-08 09:36] LABS: HEMOGLOBIN 6.9 g/dL (13.3-17.7)
[2021-07-08 09:46] LABS: CALCIUM 8.8 MG/DL (8.5-10.1); CREATININE SERUM 0.89 MG/DL (0.60-1.30); POTASSIUM 4.3 MMOL/L (3.6-5.0)
[2021-07-08] MEDS ORDERED: NS IV 500 ML 500 ML IV SCH ×2 (10:00)
--- NOTE | 2021-07-08 10:05 | Discharge Summary ---
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 Discharge Summary Procedures/Consulations Dr Roper- Surgery Discharge Physical Exam Allergies: Coded Allergies: No Known Drug Allergies (Unverified , 12/11/19) Vitals & I&Os Vital Signs Date Time Temp Pulse Resp B/P (MAP) Pulse Ox O2 Delivery O2 Flow Rate FiO2 07/08/21 10:49 38.0 99 20 115/78 99 Room Air 07/08/21 08:40 6 General Appearance: No Apparent Distress, Chronically ill, Thin Cardiovascular: Regular Rate, Rhythm, No Murmur Neurologic/Psychiatric: Alert, Oriented x3 Hospital Course Patient was admitted to the hospital due to weakness and shortness of breath after being found to have presumably diffusely metastatic cancer of unknown primary. He was mildly anemic and was given 1 unit of packed red blood cells. He underwent colonoscopy with Dr. Roper which revealed a nearly obstructing mass in the rectosigmoid colon. Dr. Roper is planning on bowel resection later this week as an outpatient. He was discharged home in stable and improved condition to follow-up with Dr. Roper as scheduled. Referral has been made to the cancer center as well for management of what is presumed to be a neoplastic process. Labs (last 24 hrs) Laboratory Tests 07/07/21 12:26: White Blood Count 19.7H, Red Blood Count 3.96L, Hemoglobin 7.7L, Hematocrit 25L, Mean Corpuscular Volume 64L, Mean Corpuscular Hemoglobin 19L, Mean Corpuscular Hemoglobin Concent 30L, Red Cell Distribution Width 16.8H, Platelet Count 549H, Mean Platelet Volume 9.1, Immature Granulocyte % (Auto) 1, Neutrophils (%) (Auto) 82H, Lymphocytes (%) (Auto) 6L, Monocytes (%) (Auto) 11, Eosinophils (%) (Auto) 0, Basophils (%) (Auto) 0, Neutrophils # (Auto) 16.1H, Lymphocytes # (Auto) 1.3, Monocytes # (Auto) 2.1H, Eosinophils # (Auto) 0.0, Basophils # (Auto) 0.1, Immature Granulocyte # (Auto) 0.2H, Neutrophils % (Manual) 83, Lymphocytes % (Manual) 9, Monocytes % (Manual) 5, Basophils % (Manual) 1, Band Neutrophils 2, Hypochromasia MODERATE, Microcytosis MARKED, Prothrombin Time 18.4H, INR Comment 1.5H, Activated Partial Thromboplast Time 50H, D-Dimer 2.98H, Sodium Level 132L, Potassium Level 4.2, Chloride Level 98, Carbon Dioxide Level 19L, Anion Gap 15H, Blood Urea Nitrogen 12, Creatinine 0.90, Estimat Glomerular Filtration Rate 102, BUN/Creatinine Ratio 13, Glucose Level 100, Lactic Acid Level 1.29, Calcium Level 9.0, Corrected Calcium 9.5, Magnesium Level 2.0, Total Bilirubin 2.3H, Aspartate Amino Transf (AST/SGOT) 84H, Alanine Aminotransferase (ALT/SGPT) 38, Alkaline Phosphatase 267H, Myoglobin 32.9, Troponin I < 0.028, B- Type Natriuretic Peptide 57.5, Total Protein 7.6, Albumin 3.4, Lipase 19 07/08/21 05:00: White Blood Count 17.7H, Red Blood Count 3.67L, Hemoglobin 6.9*L, Hematocrit 24L , Mean Corpuscular Volume 66L, Mean Corpuscular Hemoglobin 19L, Mean Corpuscular Hemoglobin Concent 29L, Red Cell Distribution Width 17.0H, Platelet Count 506H, Mean Platelet Volume 10.5, Sodium Level 133L, Potassium Level 4.3, Chloride Level 97L, Carbon Dioxide Level 19L, Anion Gap 17H, Blood Urea Nitrogen 12, Creatinine 0.89, Estimat Glomerular Filtration Rate 102, BUN/Creatinine Ratio 13, Glucose Level 94, Calcium Level 8.8, Triglycerides Level 60, Cholesterol Level 93, LDL Cholesterol Direct 67, VLDL Cholesterol 12, HDL Cholesterol 21L Patient resulted labs reviewed. Pending Labs Laboratory Tests 07/08/21 05:00: White Blood Count 17.7, Red Blood Count 3.67, Hemoglobin 6.9, Hematocrit 24, Mean Corpuscular Volume 66, Mean Corpuscular Hemoglobin 19, Mean Corpuscular Hemoglobin Concent 29, Red Cell Distribution Width 17.0, Platelet Count 506, Mean Platelet Volume 10.5, Sodium Level 133, Potassium Level 4.3, Chloride Level 97, Carbon Dioxide Level 19, Anion Gap 17, Blood Urea Nitrogen 12, Creatinine 0.89, Estimat Glomerular Filtration Rate 102, BUN/Creatinine Ratio 13, Glucose Level 94, Calcium Level 8.8, Triglycerides Level 60, Cholesterol Level 93, LDL Cholesterol Direct 67, VLDL Cholesterol 12, HDL Cholesterol 21 Imaging: Reviewed Imaging Report Discussion & Recommendations Discharge Planning: >30 minutes discharge planning Discharge Home Medications: Active Scripts Active Cyclobenzaprine HCl 10 Mg Tablet 10 Mg PO Q8H PRN Instructions to patient/family Please see electronic discharge instructions given to patient. Clinical Quality Measures AMI/AHF: ASA po Prior to arrival: No Problem Qualifiers (1) Metastatic cancer: Area of secondary neoplastic involvement: respiratory structure Respiratory structure secondary neoplasm location: metastatic to lung Laterality: bilateral Qualified Codes: C78.01 - Secondary malignant neoplasm of right lung; C78.02 - Secondary malignant neoplasm of left lung JUAQUIN DURBIN MD Jul 08, 2021 10:05
--- NOTE | 2021-07-08 10:27 | Discharge Inst-Simple/Standard ---
Discharge Inst-Standard Patient Instructions/Follow Up Plan of Care/Instructions/FU: Please continue to take your medications as written. Please follow up with your primary care doctor to follow up this hospital stay and with Dr Roper this week as scheduled. Activity as Tolerated: Yes Discharge Diet: No Restrictions Return to The Hospital For: Chest pain, abdominal pain, weakness, shortness of breath, bloody stools, if you feel you are getting worse. JUAQUIN DURBIN MD Jul 08, 2021 10:27
--- NOTE | 2021-07-08 11:18 | OPERATIVE REPORT ---
DATE OF SERVICE: 07/08/2021 PREOPERATIVE DIAGNOSIS: Abnormal CT scan, rectosigmoid thickening. POSTOPERATIVE DIAGNOSIS: Rectosigmoid mass. PROCEDURES PERFORMED: Flexible sigmoidoscopy with cold biopsies of rectosigmoid mass. SURGEON: Jayne Roper DO. ANESTHESIA: Per GAS TURBINE ASSEMBLER. ESTIMATED BLOOD LOSS: Scant. COMPLICATIONS: None. INDICATIONS FOR PROCEDURE: The patient is a 55-year-old male, who has been having bleeding for over one year. He has abnormal CT scan, which demonstrated some rectosigmoid thickening. He also has evidence of metastatic disease. The patient understands the risks and benefits of the procedure and wishes to proceed. Consent was signed in the chart. DESCRIPTION OF PROCEDURE: The patient was taken to the endoscopy suite and placed in a left lateral recumbent position. Timeout was performed. Digital rectal exam was performed. No palpable polyps, masses or ulcerations. Scope was inserted in the rectum and advanced through the rectum into the rectosigmoid area where almost a completely obstructing mass was present. The scope was unable to be passed through this area due to the significant narrowing. Multiple cold biopsies were obtained. Scope was then slowly retracted back until completely removed. The patient tolerated the procedure well without any complications and taken to recovery room in stable condition. RECOMMENDATIONS: We discussed with oncology, but due to the mass being almost completely obstructing, will likely proceed with low anterior resection laparoscopic and assisted this week. We discussed with the patient and family. Job ID: [id number] DocumentID: [id number] Dictated Date: 07/08/2021 08:45:23 Information Services Assistant Date: 07/08/2021 11:17:19 Dictated By: JAYNE ROPER DO
[2021-07-08] MEDS ORDERED: BISACODYL 5 MG (DULCOLAX) TABLET PO SCH ×2 (12:00→15:00)
[2021-07-08] MEDS ORDERED: CYCL10TA25 PO (16:00)
--- NOTE | 2021-07-08 21:34 | Anesthesia-General Post-Op ---
MAC Significant Intra-Op Events Notes late entry from 1000 Post Op Complications Complications None Follow Up Care/Instructions Patient Instructions None needed. Anesthesiology Discharge Order Discharge Order Patient is doing well, no complaints, stable vital signs, no apparent adverse anesthesia problems. No complications reported per nursing. OLGA EID CRNA Jul 08, 2021 21:34
[2021-07-13] MEDS ORDERED: OMEP20TA7 PO (07:34)
== END 2021-07-08 10:31 | disposition home or self-care (01) ==
LOC: EDUNIT# 12:12 → ER 12:14 → 4TH 14:24 → UNDOADMOB 14:24 → INTOOBSV 14:24 → 4TH 15:39 → UNDODISOB 07-08 14:15
PROVIDERS: ADMIT Family Medicine; ATTEND Family Medicine
DX: C19 Malignant neoplasm of rectosigmoid junction (principal); C78.7 Secondary malignant neoplasm of liver and intrahepatic bile duct; C77.5 Secondary and unspecified malignant neoplasm of intrapelvic lymph nodes; K21.9 Gastro-esophageal reflux disease without esophagitis; R19.7 Diarrhea, unspecified; D50.9 Iron deficiency anemia, unspecified; E80.6 Other disorders of bilirubin metabolism; D69.6 Thrombocytopenia, unspecified; R74.01 Elevation of levels of liver transaminase levels; I10 Essential (primary) hypertension; K92.1 Melena; R06.02 Shortness of breath; F17.220 Nicotine dependence, chewing tobacco, uncomplicated; Z79.899 Other long term (current) drug therapy; Z80.0 Family history of malignant neoplasm of digestive organs
CPT/HCPCS: 36430; 45331; 71045; 71275; 74177; 80048; 80053; 80061; 83605; 83690; 83735; 83874; 83880; 84484; 85007; 85027 ×2; 85379; 85610; 85730; 86850; 86900; 86901; 86920; 87040; 87081; 93005; 93041; 96360; 99284; G0378; P9016; 36415

== ENCOUNTER 2021-07-11 08:16 | Outpatient (CLI) | payer BC ==
[~2021-07-11] VITALS: Ht 188 cm; Wt 75.0 kg
[2021-07-13] MEDS ORDERED: OMEP20TA7 PO (07:34)
== END 2021-07-11 10:59 | disposition home or self-care (01) ==
LOC: PREOP 08:16
PROVIDERS: ATTEND Surgery
DX: Z01.818 Encounter for other preprocedural examination (principal)

== ENCOUNTER 2021-07-13 06:54 | Inpatient (IN) | payer BC ==
[2021-07-13] VITALS (10 sets, daily range): BP systolic 92–127; BP diastolic 58–85
[~2021-07-13] VITALS: Ht 188 cm; Wt 74.5 kg
[2021-07-13] MEDS ORDERED: OMEP20TA56 PO (07:34)
[2021-07-13] MEDS ORDERED: metroNIDAZOLE 500MG/100ML IVPB 100 ML ONE (07:35)
[2021-07-13] MEDS ORDERED: ceFAZolin 2 GM IV Premixed 50 ML ONE (07:35)
[2021-07-13] MEDS ORDERED: LIDOCAINE/EPI 2% 1:100,00 (XYLOCAINE) 20 ML VIAL ONE (07:37)
[2021-07-13] MEDS: LACTATED RINGERS 1,000 ML IV PRN ×3 (07:40→11:38)
[2021-07-13] MEDS ORDERED: ceFAZolin 2 GM IV Premixed 50 ML IV ONE (07:45)
[2021-07-13] MEDS ORDERED: metroNIDAZOLE 500MG/100ML IVPB 100 ML IV ONE (07:45)
[2021-07-13] MEDS ORDERED: NS IV 500 ML 500 ML IV SCH (07:45)
[2021-07-13] MEDS ORDERED: fentaNYL INJ 100 MCG/2 ML AMP ONE (08:00)
[2021-07-13] MEDS ORDERED: ONDANSETRON 4 MG/2 ML (SDV) Z0FRAN ONE (08:00)
[2021-07-13] MEDS ORDERED: NEOSTIGMINE 3 MG/3 ML VIAL ONE (08:00)
[2021-07-13] MEDS ORDERED: GLYCOPYRROLATE 0.2 MG/ML (ROBINUL) 2 ML VIAL ONE (08:00)
[2021-07-13] MEDS ORDERED: MIDAZOLAM 2 MG/2 ML (VERSED) VIAL ONE (08:00)
[2021-07-13] MEDS ORDERED: ROCURONIUM 50 MG/5 ML (ZEMURON) VIAL IV ONE ×2 (08:00→09:25)
[2021-07-13] MEDS ORDERED: LIDOCAINE PF 2% 5 ML (XYLOCAINE) VIAL ONE (08:00)
[2021-07-13] MEDS ORDERED: proPOfol 200 MG/20 ML (DIPRIVAN) VIAL IV ONE (08:00)
--- NOTE | 2021-07-13 08:04 | Progress Note-Pre Operative ---
Pre-Operative Progress Note H&P Reviewed The H&P was reviewed, patient examined and no changes noted. Date Seen by Provider: Jul 13, 2021 Time Seen by Provider: 08:00 Date H&P Reviewed: Jul 13, 2021 Time H&P Reviewed: 08:00 Pre-Operative Diagnosis: rectosigmoid mass JAYNE THORNTON DO Jul 13, 2021 08:04
[2021-07-13] MEDS ORDERED: PHENYLEPHRINE INJ 10 MG/ML (FOR PYXIS KITS ONLY) ONE (09:44)
[2021-07-13] MEDS ORDERED: SEVOFLURANE (ULTANE) 15 ML INHAL SOLN ONE ×5 (09:55→10:47)
[2021-07-13] MEDS ORDERED: METHYLENE BLUE 0.5% (PROVAYBLUE) 50 mg/10 ml vial IV ONE (10:10)
[2021-07-13] MEDS ORDERED: HYDROmorphone 2 MG/ML VIAL (DILAUDID) ONE (10:52)
--- NOTE | 2021-07-13 12:44 | Progress Note-Post Operative ---
Post-Operative Progess Note Surgeon (s)/Professional Nurse (s) Surgeon JAYNE THORNTON DO Professional Nurse: Dr. Em Pre-Operative Diagnosis rectosigmoid mass Post-Operative Diagnosis same Procedure & Operative Findings Date of Procedure 07/13/21 Procedure Performed/Findings lap hand assisted low anterior resection Anesthesia Type general Estimated Blood Loss Estimated blood loss (mL): 50 mL Specimens/Packing Specimens Removed rectosigmoid mass JAYNE THORNTON DO Jul 13, 2021 12:44
[2021-07-13] MEDS ORDERED: ONDANSETRON 4 MG/2 ML (SDV) Z0FRAN IVP PRN (12:45)
[2021-07-13] MEDS: LACTATED RINGERS 1,000 ML IV SCH ×2 (12:59→23:54)
--- NOTE | 2021-07-13 14:05 | Physical Therapy Evaluation ---
PT Evaluation-General Medical Diagnosis Admission Date Jul 13, 2021 at 06:54 Medical Diagnosis: colon resection Onset Date: Jul 13, 2021 Therapy Diagnosis Therapy Diagnosis: impaired mobility Precautions Precautions/Isolations: Standard Precautions Referral Physician: Judson Reason for Referral: Evaluation/Treatment Social History Home: Single Level Current Living Status: Spouse Entry Into Home: Ramp Prior Prior Level of Function SCALE: Activities may be completed with or without assistive devices. 8-Hpagckmdyz-mkwdkun completes the activity by him/herself with no assistance from a helper. 5-Set-up or Clean-up Assistance-helper sets up or cleans up; patient completes activity. Hensley assists only prior to or following the activity. 4-Supervision or Touching Assistance-helper provides verbal cues and/or touching/steadying and/or contact guard assistance as patient completes activity. Assistance may be provided throughout the activity or intermittently. 3-Partial/Moderate Assistance-helper does LESS THAN HALF the effort. Hensley lifts, holds or supports trunk or limbs, but provides less than half the effort. 2-Substantial/Maximal Assistance-helper does MORE THAN HALF the effort. Hensley lifts or holds trunk or limbs and provides more than half the effort. 6-Tfwaqhvgc-awhsuz does ALL the effort. Patient does none of the effort to complete the activity. Or, the assistance of 2 or more helpers is required for the patient to complete the activity. If activity was not attempted, code reason: 7-Patient Refused. 9-Not Applicable-not attempted and the patient did not perform the activity before the current illness, exacerbation or injury. 10-Not Attempted due to Environmental Limitations-(lack of equipment, weather restraints, etc.). 88-Not Attempted due to Medical Conditions or Safety Concerns. Bed Mobility: 6 Transfers (B,C,W/C): 6 Gait: 6 Stairs: 6 Indoor Mobility (Ambulation): Independent PT Evaluation-Current Subjective Patient in bed pre tx, agrees to PT, states he has very little pain. Pt/Family Goals to be independent at home Objective Patient Orientation: Person, Place, Situation Attachments: Monk Catheter, IV ROM/Strength ROM Lower Extremities WNL Strength Lower Extremities LLE (hip flexion 4/5, knee flexion 4+/5, knee extension 4+/5, dorsiflexion 4+/5), RLE (hip flexion 4/5, knee flexion 4+/5, knee extension 4+/5, dorsiflexion 4+/5) Sensory Vision: Functional Hearing: Functional Sensation Right Lower Extremit: Intact Sensation Left Lower Extremity: Intact Transfers Roll Left to Right (QC): 4 Sit to Lying (QC): 4 Lying to Sitting/Side of Bed(Q: 4 Sit to Stand (QC): 4 Chair/Skc-hy-Daokn Xfer(QC): 4 SBA for supine <-> sit and transfers Gait Does the Patient Walk?: Yes Mode of Locomotion: Walk Anticipated Mode of Locomotion: Walk Walk 10 feet (QC): 4 Walk 50 ft with 2 Turns(QC): 4 Walk 150 ft (QC): 4 Distance: 400' Gait Assistive Device: FWW Comments/Gait Description slow but steady ambulation Balance Sitting Static: Normal Sitting Dynamic: Normal Standing Static: Good Standing Dynamic: Good Treatment BLE supine exercises x20 (AP, HS) Assessment/Needs Patient in bed post tx with nurse call, phone, tray, all needs met. Patient has impaired mobility but still performs transfers and ambulation with SBA Rehab Potential: Fair PT Butadiene Converter Helper Goals Senior Care Goals PT Butadiene Converter Helper Goals Time Frame: July 20, 2021 Roll Left & Right (QC): 6 Sit to Lying (QC): 6 Lying-Sitting on Side/Bed(QC): 6 Sit to Stand (QC): 6 Chair/Oyq-jd-Ebgee Xfer(QC): 6 Walk 10 feet (QC): 6 Walk 50ft with 2 Turns (QC): 6 Walk 150 ft (QC): 6 PT Plan Problem List Problem List: Activity Tolerance, Functional Strength, Safety, Balance, Gait, Transfer, ROM Treatment/Plan Treatment Plan: Continue Plan of Care Treatment Plan: Education, Functional Activity Vale, Functional Strength, Gait, Safety, Therapeutic Exercise, Transfers Treatment Duration: July 20, 2021 Frequency: 6 times per week Estimated Hrs Per Day: .25 hour per day Patient and/or Family Agrees t: Yes Safety Risks/Education Patient Education: Gait Training, Transfer Techniques, Correct Positioning, Saf ety Issues Teaching Recipient: Patient Teaching Methods: Demonstration, Discussion Response to Teaching: Reinforcement Needed Discharge Recommendations Plan Patient will perform bed mobility and transfer training, balance and endurance training, functional strengthening, stair training, gait training, and education, to improve functional mobility and independence at home. Therapy Discharge Recommendati: Home & Family Time/GCodes Time In: 1345 Time Out: 1356 Total Billed Treatment Time: 11 Total Billed Treatment 1 visit EVL Nya' ANDREW STAPLETON PT Jul 13, 2021 14:05
[2021-07-13] MEDS: metroNIDAZOLE 500MG/100ML IVPB 100 ML IV SCH ×2 (14:49→22:06)
--- NOTE | 2021-07-13 15:54 | OPERATIVE REPORT ---
DATE OF SERVICE: 07/13/2021 PREOPERATIVE DIAGNOSIS: Rectosigmoid mass. POSTOPERATIVE DIAGNOSIS: Rectosigmoid mass. PROCEDURE: Laparoscopic hand-assisted low anterior resection with end-to-end anastomosis. SURGEON: Jayne Roper DO INTERNET MARKETER: Dr. Em, assisted in retraction, dissection, and closure. ESTIMATED BLOOD LOSS: 50 mL. SPECIMENS: Rectosigmoid colon. INDICATIONS: The patient is a 55-year-old male who was admitted, had recent imaging demonstrating metastatic disease to the liver. He had a flexible sigmoidoscopy that demonstrated a rectosigmoid mass that was also completely obstructing. The scope was unable to be passed through the area. The patient was discussed risks and benefits of procedure and wished to proceed. I talked with who agreed with the plan. Consent was signed and on the chart. DESCRIPTION OF PROCEDURE: The patient was taken to the operating suite, was prepped and draped in sterile fashion. Surgical pause was performed. Midline incision was made for hand port. A 12 mm trocar was placed in the right lower quadrant. A pneumoperitoneum was achieved. A 12 mm trocar was placed in left lower quadrant. Dissection was then used to mobilize the sigmoid colon along the white line of Toldt and also dissecting down bilateral sides of the rectum until the mass was able to be dissected around. A part of the mass was up to the peritoneum of the bladder, which had to be taken down with cautery dissection. Once this occurred distal to the mass, the rectum was dissected around. A VIRAJ stapler was then fired across the colon. The sigmoid colon was brought up through the hand port and dissected around and a pursestring stapler was placed, the colon was then transected and the anvil of a 28 EEA stapler was inserted and secured. A LigaSure was then used to divide the mesentery removing the rectosigmoid colon. The hemostasis was achieved. The specimen was removed. Due to the part of the colonic mass that was attached up to the bladder, the bladder was filled with irrigation with methylene blue. There was no leakage of the solution from the bladder. At this time, end-to-end anastomosis was created. We did a leak test with air and there was no evidence of any leak. The abdomen was then irrigated and suctioned. The abdomen was inspected, noting the liver to have a significant tumor burden. The fascia was then closed using 1-0 looped PDS. The wound was then irrigated and the skin incisions were then closed with jose l after the trocars were removed. The patient tolerated the procedure well without any complications, taken to recovery room in stable condition. Job ID: [id number] DocumentID: [id number] Dictated Date: 07/13/2021 13:50:44 Reel Worker Date: 07/13/2021 15:53:52 Dictated By: JAYNE ROPER DO
[2021-07-13] MEDS ORDERED: RT-ALBUTEROL/IPRATROPIUM 3 ML (DUONEB) VIAL INH PRN (16:30)
[2021-07-13] MEDS: morphine INJ 10 MG/ML 1ML (SYR OR VIAL) IVP PRN (17:14)
[2021-07-13] MEDS: ceFAZolin 2 GM IV Premixed 50 ML IV SCH ×2 (17:15→23:54)
[2021-07-14] VITALS (7 sets, daily range): BP systolic 115–128; BP diastolic 75–81
[2021-07-14] MEDS: HYDROcodone/APAP 5 MG/325 MG (LORTAB) TAB PO PRN ×3 (00:06→10:49)
[2021-07-14 05:59] LABS: HEMATOCRIT 28 % (40-54); HEMOGLOBIN 8.2 g/dL (13.3-17.7); MEAN CORPUSCULAR HEMOGLOBIN 20 pg (25-34); MEAN CORPUSCULAR HGB CONC 29 g/dL (32-36); MEAN CORPUSCULAR VOLUME 69 fL (80-99); MEAN PLATELET VOLUME 9.8 fL (9.0-12.2); PLATELET COUNT 680 10^3/uL (130-400); WHITE BLOOD COUNT 17.7 10^3/uL (4.3-11.0)
[2021-07-14 06:20] LABS: POTASSIUM 4.9 MMOL/L (3.6-5.0)
[2021-07-14 06:21] LABS: CALCIUM 8.5 MG/DL (8.5-10.1)
[2021-07-14 06:25] LABS: CREATININE SERUM 0.72 MG/DL (0.60-1.30)
--- NOTE | 2021-07-14 07:38 | Progress Note - Surgery ---
MANJARREZNANI ERNST 07/14/21 0738: Subjective Date Seen by a Provider: Jul 14, 2021 Time Seen by a Provider: 06:50 Subjective/Events-last exam Mr. Posey is 1 day s/p laparoscopic hand-assisted low anterior resection with end-to-end anastomosis. This morning he endorses some abdominal pain and rates it at a 5/10. He has not had a bowel movement or had any flatus. He is using his incentive spirometry. He has not other concerns or questions at this time; he is eager to return home when possible. Review of Systems General: No Chills, No Fatigue HEENT: No Head Aches, No Visual Changes Pulmonary: No Dyspnea, No Cough Cardiovascular: No: Chest Pain, Palpitations Gastrointestinal: Abdominal Pain; No: Nausea, Vomiting Neurological: No: Weakness, Confusion Objective Exam Vital Signs Date Time Temp Pulse Resp B/P (MAP) Pulse Ox O2 Delivery O2 Flow Rate FiO2 07/14/21 06:42 Room Air 07/14/21 04:05 36.4 65 18 127/80 (96) 97 Room Air 07/14/21 00:05 36.2 65 18 124/79 (94) 95 Room Air 07/13/21 22:12 95 Room Air 07/13/21 20:00 Room Air 07/13/21 19:57 37.3 69 16 116/76 (89) 97 Room Air 07/13/21 16:18 36.5 95 07/13/21 16:08 37.0 65 18 118/75 (89) 97 Room Air 07/13/21 13:17 Room Air 07/13/21 12:10 Room Air 07/13/21 11:59 36.5 20 118/77 (91) 100 Room Air 07/13/21 11:50 18 115/85 (95) 100 OxyMask 10 07/13/21 11:45 OxyMask 10 07/13/21 11:40 17 112/73 (86) 100 OxyMask 10 07/13/21 11:30 13 98/69 (79) 100 OxyMask 10 07/13/21 11:20 16 92/58 (69) 100 OxyMask 10 07/13/21 11:15 OxyMask 10 07/13/21 11:15 37.2 16 92/58 (69) 100 OxyMask 10 I & O 07/14/21 07:00 Intake Total 3510 ml Output Total 1775 ml Balance 1735 ml Capillary Refill : General Appearance: No Apparent Distress, Thin HEENT: PERRL/EOMI, Moist Mucous Membranes Neck: Normal Inspection, Non Tender Respiratory: Chest Non Tender, Lungs Clear, Normal Breath Sounds, No Accessory Muscle Use, No Respiratory Distress Cardiovascular: Regular Rate, Rhythm, No Edema, No Murmur, Normal Peripheral Pulses Peripheral Pulses: 2+ Radial Pulses (R), 2+ Radial Pulses (L) Gastrointestinal: soft, abnormal bowel sounds (Absent), tenderness (Diffuse tender), other (Dressing over midline incision with 2 bandages over port sites. [place] and wound are clean without excessive drainage.) Extremity: Normal Capillary Refill, No Pedal Edema Neurologic/Psychiatric: Alert, Oriented x3, No Motor/Sensory Deficits, Normal Mood/Affect Skin: Normal Color, Warm/Dry Results Lab Laboratory Tests 07/14/21 05:43: Sodium Level 136, Potassium Level 4.9, Chloride Level 104, Carbon Dioxide Level 20L, Anion Gap 12, Blood Urea Nitrogen 7, Creatinine 0.72, Estimat Glomerular Filtration Rate 109, BUN/Creatinine Ratio 10, Glucose Level 98, Calcium Level 8.5 07/14/21 05:49: White Blood Count 17.7H, Red Blood Count 4.08L, Hemoglobin 8.2L, Hematocrit 28L, Mean Corpuscular Volume 69L, Mean Corpuscular Hemoglobin 20L, Mean Corpuscular Hemoglobin Concent 29L, Red Cell Distribution Width 19.9H, Platelet Count 680H, Mean Platelet Volume 9.8 Assessment/Plan Assessment/Plan Assessment/Plan Assessment: 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 Rates about 5/10. Ambulating. Wanting khoury out. Using IS. No flatus or bm. Denies n/v fever sweats chills shortness of breath or chest pain. 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 Metastatic disease-liver masses Leukocytosis Anemia Thrombocytosis Clear liquids advance when bowel function Continue pain control PRN Continue fluids, metronidazole, and cefazolin Encourage ambulation and incentive spirometry Monitor for signs of bowel function Start lovenox for dvt prophylaxis Repeat labs in am Urine output good, will dc iraida Supervisory-Addendum Brief Verification & Attestation Participated in pt care: history, MDM, physical Personally performed: exam, history, MDM, supervision of care Care discussed with: Medical Student Procedures: n/a Results interpretation: Verified all documentation Verification and Attestation of Medical Student E/M Service A medical student performed and documented this service in my presence. I reviewed and verified all information documented by the medical student and made modifications to such information, when appropriate. I personally performed the physical exam and medical decision making. Jayne Thornton, Jul 14, 2021,11:08 NANI MANJARREZ Jul 14, 2021 07:38 JAYNE THORNTON DO Jul 14, 2021 11:08
--- NOTE | 2021-07-14 08:04 | Anesthesia-General Post-Op ---
General Patient Condition Mental Status/LOC: Same as Preop Cardiovascular: Satisfactory Nausea/Vomiting: Absent Respiratory: Satisfactory Pain: Controlled Complications: Absent Post Op Complications Complications None Follow Up Care/Instructions Patient Instructions None needed. Anesthesia/Patient Condition Patient Condition Patient is doing well, no complaints, stable vital signs, no apparent adverse anesthesia problems. No complications reported per nursing. D/C home per [facility] Criteria: Yes BAKARI PALACIO CRNA Jul 14, 2021 08:04
[2021-07-14] MEDS: LACTATED RINGERS 1,000 ML IV SCH ×2 (09:08→16:31)
--- NOTE | 2021-07-14 10:36 | Physical Therapy Daily Note ---
PT Daily Note-Current Subjective Patient was with nurse while entering, and compliant to start PT. Patient was previously in lots of pain earlier from catheter issues, but that seems to have resolved. Patient currently complains of abdominal pain. Pain Numeric Pain Scale: 7 Location Body Site: Abdomen Mental Status Patient Orientation: Person, Place, Time, Situation Attachments: IV Transfers SCALE: Activities may be completed with or without assistive devices. 0-Rxoaojnqjk-zvamurj completes the activity by him/herself with no assistance from a helper. 5-Set-up or Clean-up Assistance-helper sets up or cleans up; patient completes activity. [place] assists only prior to or following the activity. 4-Supervision or Touching Assistance-helper provides verbal cues and/or touching/steadying and/or contact guard assistance as patient completes activity. Assistance may be provided throughout the activity or intermittently. 3-Partial/Moderate Assistance-helper does LESS THAN HALF the effort. [place] lifts, holds or supports trunk or limbs, but provides less than half the effort. 2-Substantial/Maximal Assistance-helper does MORE THAN HALF the effort. [place] lifts or holds trunk or limbs and provides more than half the effort. 9-Mfgmfdzta-ckjltv does ALL the effort. Patient does none of the effort to complete the activity. Or, the assistance of 2 or more helpers is required for the patient to complete the activity. If activity was not attempted, code reason: 7-Patient Refused. 9-Not Applicable-not attempted and the patient did not perform the activity before the current illness, exacerbation or injury. 10-Not Attempted due to Environmental Limitations-(lack of equipment, weather restraints, etc.). 88-Not Attempted due to Medical Conditions or Safety Concerns. Sit to Lying (QC): 6 Lying to Sitting/Side of Bed(Q: 6 Sit to Stand (QC): 5 Weight Bearing Right Lower Extremity: Right Full Weight Bearing Left Lower Extremity: Left Full Weight Bearing Gait Training Does the Patient Walk?: Yes Distance: 100' Walk 10 feet (QC): 5 Walk 50 ft with 2 Turns(QC): 5 Gait Assistive Device: None pushes his own IV pole Exercises Seated Therapy Exercises: Ankle pumps, Long arc quads, Hip flexion, Glut set Seated Reps: 20 Treatments Ambulation, LE strengthening. Assessment Current Status: Good Progress Patient performed ambulation well today showing good and safe walking mechanics, although had a hunched posture likely due to pain and guarding. Patient showed good strength and ROM with LE exercises. Patient was left seated in chair with call light, tray, and all needs met. PT Prison Goals Knocker Off Goals PT Knocker Off Goals Time Frame: July 20, 2021 Roll Left & Right (QC): 6 Sit to Lying (QC): 6 Lying-Sitting on Side/Bed(QC): 6 Sit to Stand (QC): 6 Chair/Nso-wf-Tknwk Xfer(QC): 6 Walk 10 feet (QC): 6 Walk 50ft with 2 Turns (QC): 6 Walk 150 ft (QC): 6 PT Plan Problem List Problem List: Activity Tolerance, Functional Strength, Safety, Balance, Gait, Transfer, ROM Treatment/Plan Treatment Plan: Continue Plan of Care Treatment Plan: Education, Functional Activity Vale, Functional Strength, Gait, Safety, Therapeutic Exercise, Transfers Treatment Duration: July 20, 2021 Frequency: 6 times per week Estimated Hrs Per Day: .25 hour per day Patient and/or Family Agrees t: Yes Safety Risks/Education Patient Education: Gait Training, Transfer Techniques, Correct Positioning, Safety Issues Teaching Recipient: Patient Teaching Methods: Discussion Response to Teaching: Verbalize Understanding Time/GCodes Time In: 1015 Time Out: 1025 Total Billed Treatment Time: 10 Total Billed Treatment 1 visit FA 10min ANDREW STAPLETON PT Jul 14, 2021 10:36
[2021-07-14] MEDS: morphine INJ 10 MG/ML 1ML (SYR OR VIAL) IVP PRN (12:26)
[2021-07-15] MEDS: morphine INJ 10 MG/ML 1ML (SYR OR VIAL) IVP PRN (00:28)
[2021-07-15] MEDS: LACTATED RINGERS 1,000 ML IV SCH ×2 (05:21→15:37)
[2021-07-15 05:43] LABS: HEMATOCRIT 35 % (40-54); HEMOGLOBIN 10.2 g/dL (13.3-17.7); MEAN CORPUSCULAR HEMOGLOBIN 20 pg (25-34); MEAN CORPUSCULAR HGB CONC 29 g/dL (32-36); MEAN CORPUSCULAR VOLUME 69 fL (80-99); MEAN PLATELET VOLUME 9.6 fL (9.0-12.2); PLATELET COUNT 711 10^3/uL (130-400); WHITE BLOOD COUNT 20.2 10^3/uL (4.3-11.0)
[2021-07-15 05:51] LABS: POTASSIUM 4.5 MMOL/L (3.6-5.0)
[2021-07-15 05:52] LABS: CALCIUM 8.8 MG/DL (8.5-10.1)
[2021-07-15 05:57] LABS: CREATININE SERUM 0.77 MG/DL (0.60-1.30)
[2021-07-15 07:34] VITALS: BP 127/83
--- NOTE | 2021-07-15 08:45 | Physical Therapy Daily Note ---
PT Daily Note-Current Subjective States that he is feeling okay. Transfers SCALE: Activities may be completed with or without assistive devices. 7-Ughkabszcx-jravfdg completes the activity by him/herself with no assistance from a helper. 5-Set-up or Clean-up Assistance-helper sets up or cleans up; patient completes activity. [place] assists only prior to or following the activity. 4-Supervision or Touching Assistance-helper provides verbal cues and/or touching/steadying and/or contact guard assistance as patient completes activity. Assistance may be provided throughout the activity or intermittently. 3-Partial/Moderate Assistance-helper does LESS THAN HALF the effort. [place] lifts, holds or supports trunk or limbs, but provides less than half the effort. 2-Substantial/Maximal Assistance-helper does MORE THAN HALF the effort. [place] lifts or holds trunk or limbs and provides more than half the effort. 5-Xjnaqrrle-ifpskj does ALL the effort. Patient does none of the effort to complete the activity. Or, the assistance of 2 or more helpers is required for the patient to complete the activity. If activity was not attempted, code reason: 7-Patient Refused. 9-Not Applicable-not attempted and the patient did not perform the activity before the current illness, exacerbation or injury. 10-Not Attempted due to Environmental Limitations-(lack of equipment, weather restraints, etc.). 88-Not Attempted due to Medical Conditions or Safety Concerns. Chair/Qog-te-Altfa Xfer(QC): 5 Weight Bearing Right Lower Extremity: Right Full Weight Bearing Left Lower Extremity: Left Full Weight Bearing Gait Training Distance: 250 Walk 10 feet (QC): 5 Walk 50 ft with 2 Turns(QC): 5 Walk 150 ft (QC): 5 Gait Persons Needed: 1 Gait Assistive Device: None Assessment Current Status: Excellent Progress Patient is doing well with gait and is safe to be up ad tanisha in his room. PT Nursing Home Goals [employer] Goals PT [employer] Goals Time Frame: July 20, 2021 Roll Left & Right (QC): 6 Sit to Lying (QC): 6 Lying-Sitting on Side/Bed(QC): 6 Sit to Stand (QC): 6 Chair/Hxs-hq-Ugsvr Xfer(QC): 6 Walk 10 feet (QC): 6 Walk 50ft with 2 Turns (QC): 6 Walk 150 ft (QC): 6 PT Plan Treatment/Plan Treatment Plan: Continue Plan of Care Treatment Plan: Education, Functional Activity Vale, Functional Strength, Gait, Safety, Therapeutic Exercise, Transfers Treatment Duration: July 20, 2021 Frequency: 6 times per week Estimated Hrs Per Day: .25 hour per day Patient and/or Family Agrees t: Yes Time/GCodes Time In: 830 Time Out: 840 Total Billed Treatment Time: 10 Total Billed Treatment 1, GT x 10' LALITHA SYKES PT Jul 15, 2021 08:45
--- NOTE | 2021-07-15 10:31 | Progress Note ---
Subjective Date Seen by a Provider: Jul 15, 2021 Time Seen by a Provider: 09:50 Subjective/Events-last exam Patient seen with Dr. Moreira. Patient reports doing well. Does report occasional nausea but no vomiting. Denies any significant bowel function, but did report small liquid stool yesterday. Tolerating clear liquid diet. Ambulating. Objective Exam Vital Signs Date Time Temp Pulse Resp B/P (MAP) Pulse Ox O2 Delivery O2 Flow Rate FiO2 07/15/21 07:34 36.6 83 20 127/83 (98) 96 Room Air 07/15/21 06:47 Room Air 07/14/21 23:11 37.0 81 20 120/79 (93) 94 Room Air 07/14/21 20:15 94 Room Air 07/14/21 20:04 36.5 86 16 128/79 (95) 94 Room Air 07/14/21 15:41 37.3 80 24 124/81 (95) 96 Room Air 07/14/21 11:20 36.9 75 16 115/75 (88) 95 Room Air I & O 07/15/21 07:00 Intake Total 1290 ml Output Total 950 ml Balance 340 ml Capillary Refill : General Appearance: No Apparent Distress, WD/WN Neck: Normal Inspection, Supple Respiratory: No Accessory Muscle Use, No Respiratory Distress Cardiovascular: Regular Rate, Rhythm, No Edema Gastrointestinal: soft, tenderness, other (Abdominal incisions C/D/I with no signs of infection) Extremity: Normal Inspection, Normal Range of Motion Neurologic/Psychiatric: Alert, Oriented x3 Skin: Normal Color, Warm/Dry Results Lab Laboratory Tests 07/15/21 05:23: White Blood Count 20.2H, Red Blood Count 5.07, Hemoglobin 10.2#L, Hematocrit 35L , Mean Corpuscular Volume 69L, Mean Corpuscular Hemoglobin 20L, Mean Corpuscular Hemoglobin Concent 29L, Red Cell Distribution Width 20.8H, Platelet Count 711H, Mean Platelet Volume 9.6, Sodium Level 136, Potassium Level 4.5, Chloride Level 100, Carbon Dioxide Level 20L, Anion Gap 16H, Blood Urea Nitrogen 10, Creatinine 0.77, Estimat Glomerular Filtration Rate 107, BUN/Creatinine Ratio 13, Glucose Level 107H, Calcium Level 8.8, Magnesium Level 2.0 Microbiology 07/13/21 MRSA Screen - Final, Complete MRSA not isolated Assessment/Plan Assessment/Plan Assess & Plan/Chief Complaint A 55 year old male with Rectosigmoid mass, s/p laparoscopic hand-assisted low anterior resection with end-to-end anastomosis VSS WBC increased to 20.2 - Will check Chest x-ray and UA Continue pain control PRN Continue fluids, metronidazole, and cefazolin Encourage ambulation and incentive spirometry Monitor for signs of bowel function - will advance diet when bowel function increased Labs in AM MITRA SOLANO OIL HOUSE ATTENDANT Jul 15, 2021 10:30
--- NOTE | 2021-07-15 10:50 | Diagnostic Imaging Report ---
EXAMINATION: Chest 1 view HISTORY: Leukocytosis COMPARISON: 07/07/2021 FINDINGS: There is mild left base atelectasis or pneumonia. No pleural effusion or pneumothorax. Heart size is normal. IMPRESSION: 1. Mild left base atelectasis or pneumonia. Dictated by: Dictated on workstation # [id number]
[2021-07-15] MEDS: ceFAZolin 2 GM IV Premixed 50 ML IV SCH ×2 (11:08→18:18)
[2021-07-15] MEDS: metroNIDAZOLE 500MG/100ML IVPB 100 ML IV SCH ×2 (13:37→21:31)
[2021-07-15 15:30] VITALS: BP 135/88
[2021-07-15 15:52] LABS: BILIRUBIN,URINE NEGATIVE (NEGATIVE); CLARITY,URINE CLEAR; COLOR,URINE DARK YELLOW; GLUCOSE, URINE (UA) NEGATIVE (NEGATIVE); KETONES,URINE NEGATIVE (NEGATIVE); LEUKOCYTE ESTERASE ,URINE TRACE (NEGATIVE); NITRITE,URINE NEGATIVE (NEGATIVE); PH,URINE 5.5 (5-9); PROTEIN,URINE NEGATIVE (NEGATIVE)
[2021-07-15 15:58] LABS: BACTERIA,URINE NEGATIVE /HPF
[2021-07-15] MEDS ORDERED: SIMETHICONE 80 MG (MYLICON) CHEW PO ONE (17:30)
[2021-07-15 23:52] VITALS: BP 134/84
[2021-07-16] MEDS: ceFAZolin 2 GM IV Premixed 50 ML IV SCH ×3 (02:37→18:21)
[2021-07-16] MEDS: LACTATED RINGERS 1,000 ML IV SCH ×2 (02:38→15:58)
[2021-07-16] MEDS: metroNIDAZOLE 500MG/100ML IVPB 100 ML IV SCH ×3 (05:18→21:03)
[2021-07-16 05:29] LABS: HEMATOCRIT 25 % (40-54); HEMOGLOBIN 7.6 g/dL (13.3-17.7); MEAN CORPUSCULAR HEMOGLOBIN 21 pg (25-34); MEAN CORPUSCULAR HGB CONC 30 g/dL (32-36); MEAN CORPUSCULAR VOLUME 69 fL (80-99); MEAN PLATELET VOLUME 9.8 fL (9.0-12.2); PLATELET COUNT 421 10^3/uL (130-400); WHITE BLOOD COUNT 14.7 10^3/uL (4.3-11.0)
[2021-07-16 05:44] LABS: POTASSIUM 4.3 MMOL/L (3.6-5.0)
[2021-07-16 05:46] LABS: CALCIUM 8.1 MG/DL (8.5-10.1)
[2021-07-16 05:50] LABS: CREATININE SERUM 0.68 MG/DL (0.60-1.30)
[2021-07-16 05:52] LABS: MAGNESIUM 1.9 MG/DL (1.6-2.4)
[2021-07-16 07:42] VITALS: BP 151/84
--- NOTE | 2021-07-16 09:51 | Progress Note ---
Subjective Date Seen by a Provider: July 16, 2021 Time Seen by a Provider: 08:40 Subjective/Events-last exam Patient seen with Dr. Moreira. Patient reports doing better. Having BMs and passing flatus. Nausea improving, no vomiting. No Fever/chills. Ambulating. Reports that he is hungry. Objective Exam Vital Signs Date Time Temp Pulse Resp B/P (MAP) Pulse Ox O2 Delivery O2 Flow Rate FiO2 07/16/21 07:42 37.4 79 18 151/84 (106) 93 Room Air 07/15/21 23:52 37.0 73 17 134/84 (101) 95 Room Air 07/15/21 19:16 94 Room Air 07/15/21 15:30 37.2 81 18 135/88 (104) 95 Room Air I & O 07/16/21 07:00 Intake Total 1690 ml Output Total 950 ml Balance 740 ml Capillary Refill : General Appearance: No Apparent Distress, WD/WN Neck: Normal Inspection, Supple Respiratory: No Accessory Muscle Use, No Respiratory Distress Gastrointestinal: normal bowel sounds, soft, tenderness, other (Abdominal incisions C/D/I) Extremity: Normal Inspection, Normal Range of Motion Neurologic/Psychiatric: Alert, Oriented x3 Skin: Normal Color, Warm/Dry Results Lab Laboratory Tests 07/15/21 15:00: Urine Color DARK YELLOW, Urine Clarity CLEAR, Urine pH 5.5, Urine Specific [place] >=1.030, Urine Protein NEGATIVE, Urine Glucose (UA) NEGATIVE, Urine Ketones NEGATIVE, Urine Nitrite NEGATIVE, Urine Bilirubin NEGATIVE, Urine Urobilinogen 0.2, Urine Leukocyte Esterase TRACEH, Urine RBC (Auto) NEGATIVE, Urine RBC NONE, Urine WBC 2-5, Urine Squamous Epithelial Cells NONE, Urine Crystals NONE, Urine Bacteria NEGATIVE, Urine Casts NONE, Urine Mucus SMALLH, Urine Culture Indicated NO 07/16/21 04:55: White Blood Count 14.7H, Red Blood Count 3.66L, Hemoglobin 7.6#L, Hematocrit 25L , Mean Corpuscular Volume 69L, Mean Corpuscular Hemoglobin 21L, Mean Corpuscular Hemoglobin Concent 30L, Red Cell Distribution Width 20.2H, Platelet Count 421H, Mean Platelet Volume 9.8, Sodium Level 135, Potassium Level 4.3, Chloride Level 99, Carbon Dioxide Level 22, Anion Gap 14, Blood Urea Nitrogen 11, Creatinine 0.68, Estimat Glomerular Filtration Rate 111, BUN/Creatinine Ratio 16, Glucose Level 84, Calcium Level 8.1L, Magnesium Level 1.9 Microbiology 07/13/21 MRSA Screen - Final, Complete MRSA not isolated Assessment/Plan Assessment/Plan Assess & Plan/Chief Complaint A 55 year old male with Rectosigmoid mass, s/p laparoscopic hand-assisted low anterior resection with end-to-end anastomosis VSS WBC decreased to 14.7 Continue pain control PRN Continue fluids, metronidazole, and cefazolin Encourage ambulation and incentive spirometry Having more bowel function - will advance to DYS3 diet MITRA SOLANO EXPERIMENTAL MECHANIC ELECTRICAL July 16, 2021 09:51
[2021-07-16 15:50] VITALS: BP 147/82
[2021-07-16 22:49] VITALS: BP 118/77
[2021-07-17] VITALS: BP 160/86
[2021-07-17] MEDS: ceFAZolin 2 GM IV Premixed 50 ML IV SCH ×2 (02:53→10:29)
[2021-07-17] MEDS: LACTATED RINGERS 1,000 ML IV SCH ×2 (03:39→05:26)
[2021-07-17] MEDS: metroNIDAZOLE 500MG/100ML IVPB 100 ML IV SCH ×2 (05:26→13:54)
[2021-07-17 05:36] LABS: HEMATOCRIT 26 % (40-54); HEMOGLOBIN 7.7 g/dL (13.3-17.7); MEAN CORPUSCULAR HEMOGLOBIN 20 pg (25-34); MEAN CORPUSCULAR HGB CONC 30 g/dL (32-36); MEAN CORPUSCULAR VOLUME 68 fL (80-99); MEAN PLATELET VOLUME 9.4 fL (9.0-12.2); PLATELET COUNT 359 10^3/uL (130-400)
[2021-07-17 05:55] LABS: CALCIUM 8.1 MG/DL (8.5-10.1)
[2021-07-17 06:00] LABS: CREATININE SERUM 0.63 MG/DL (0.60-1.30)
[2021-07-17 06:02] LABS: MAGNESIUM 1.8 MG/DL (1.6-2.4)
[2021-07-17 07:28] VITALS: BP 154/85
--- NOTE | 2021-07-17 09:44 | Physical Therapy Daily Note ---
PT Daily Note-Current Subjective Patient reports he is up independently in room. Agrees to PT. Transfers SCALE: Activities may be completed with or without assistive devices. 8-Hidsfsbvip-pnwmzyd completes the activity by him/herself with no assistance from a helper. 5-Set-up or Clean-up Assistance-helper sets up or cleans up; patient completes activity. [place] assists only prior to or following the activity. 4-Supervision or Touching Assistance-helper provides verbal cues and/or touching/steadying and/or contact guard assistance as patient completes activity. Assistance may be provided throughout the activity or intermittently. 3-Partial/Moderate Assistance-helper does LESS THAN HALF the effort. [place] lifts, holds or supports trunk or limbs, but provides less than half the effort. 2-Substantial/Maximal Assistance-helper does MORE THAN HALF the effort. [place] lifts or holds trunk or limbs and provides more than half the effort. 9-Peqzzewmy-fzmeqh does ALL the effort. Patient does none of the effort to complete the activity. Or, the assistance of 2 or more helpers is required for the patient to complete the activity. If activity was not attempted, code reason: 7-Patient Refused. 9-Not Applicable-not attempted and the patient did not perform the activity before the current illness, exacerbation or injury. 10-Not Attempted due to Environmental Limitations-(lack of equipment, weather restraints, etc.). 88-Not Attempted due to Medical Conditions or Safety Concerns. Sit to Lying (QC): 6 Lying to Sitting/Side of Bed(Q: 6 Sit to Stand (QC): 6 Weight Bearing Right Lower Extremity: Right Full Weight Bearing Left Lower Extremity: Left Full Weight Bearing Gait Training Distance: 250' Walk 10 feet (QC): 6 Walk 50 ft with 2 Turns(QC): 6 Walk 150 ft (QC): 6 Gait Assistive Device: None Assessment PT instructed patient to ambulate PRN in hallway. RN notified. PT to dismiss patient from services at this time due to independence. PT Shelter Goals Shelter Goals PT [employer] Goals Time Frame: July 20, 2021 Roll Left & Right (QC): 6 Sit to Lying (QC): 6 Lying-Sitting on Side/Bed(QC): 6 Sit to Stand (QC): 6 Chair/Ccz-jw-Koyhb Xfer(QC): 6 Walk 10 feet (QC): 6 Walk 50ft with 2 Turns (QC): 6 Walk 150 ft (QC): 6 PT Plan Treatment/Plan Treatment Plan: Discontinue PT, goals met Treatment Plan: Education, Functional Activity Vale, Functional Strength, Gait, Safety, Therapeutic Exercise, Transfers Treatment Duration: July 20, 2021 Frequency: 6 times per week Estimated Hrs Per Day: .25 hour per day Patient and/or Family Agrees t: Yes Time/GCodes Time In: 847 Time Out: 856 Total Billed Treatment Time: 9 Total Billed Treatment 1 visit FA 9 min CORINNA UNGER PT July 17, 2021 09:44
[2021-07-17] MEDS ORDERED: ACHD5005 PO (13:09)
[2021-07-17] MEDS ORDERED: AMOX1TAB12 PO (13:09)
--- NOTE | 2021-07-17 13:11 | Discharge Inst-Simple/Standard ---
Discharge Inst-Standard Discharge Medications New, Converted or Re-Newed RX: Transmitted to Pharmacy Patient Instructions/Follow Up Plan of Care/Instructions/FU: 2 weeks [place] Activity as Tolerated: No Discharge Diet: Regular Diet Other Inst to Patient Follow up Appt: Make appointment for 2 week. Instructions: No lifting greater than 10 pounds. No strenuous activity. May shower in 24 hours, no tub bath or soaking. Use incentive spirometer at home as directed. No Smoking Skin/Wound Care: Keep area clean and dry. Symptoms to Report: Appetite Changes, Extremity Discoloration, Numbness/Tingling, Swelling Increased, Bleeding Excessive, Eyesight Changes, Pain Increased, Urine Color Change, Constipation(Persistent), Fever over 101 degree F, Pain/Pressure in chest, Urinating Difficulty, Cough Up/Vomit Blood, Heart Beat Irreg/Pounding, Pain/Pressure in jaw, Vaginal Bleeding Increase, Cramps in feet or legs, Lightheadedness, Pain/Pressure in shoulder, Diarrhea(Persistent), Memory Changes Suddenly, Questions/Concerns, Weight gain consecutive days, Dizziness/Fainting, Nausea/Vomiting, Shortness of Breath, Weight gain over 2 pounds If questions or concerns contact your physician Or seek help at emergency department. JAYNE THORNTON DO July 17, 2021 13:11
--- NOTE | 2021-07-17 13:15 | Progress Note - Surgery ---
Subjective Date Seen by a Provider: July 17, 2021 Time Seen by a Provider: 13:11 Subjective/Events-last exam Patient tolerating diet. Pain controlled. Using IS some. Having bowel function. Wanting to go home. WBC trending down. Denies n/v fever sweats chills shortness of breath or chest pain. Objective Exam Vital Signs Date Time Temp Pulse Resp B/P (MAP) Pulse Ox O2 Delivery O2 Flow Rate FiO2 07/17/21 10:50 95 Room Air 07/17/21 07:28 36.7 71 18 154/85 (108) 96 Room Air 07/17/21 00:00 37.3 69 17 160/86 (110) 95 Room Air 07/16/21 22:51 Room Air 07/16/21 22:49 36.5 95 07/16/21 20:24 Room Air 07/16/21 15:50 35.9 75 18 147/82 (103) 94 I & O 07/17/21 07:00 Intake Total 2950 ml Output Total 1550 ml Balance 1400 ml Capillary Refill : General Appearance: No Apparent Distress, WD/WN HEENT: PERRL/EOMI, Normal ENT Inspection Neck: Normal Inspection, Supple Respiratory: No Accessory Muscle Use, No Respiratory Distress Cardiovascular: Regular Rate, Rhythm, No Edema Peripheral Pulses: 2+ Radial Pulses (R), 2+ Radial Pulses (L) Gastrointestinal: normal bowel sounds, soft, tenderness, other (Abdominal incisions C/D/I) Extremity: Normal Inspection, Normal Range of Motion Neurologic/Psychiatric: Alert, Oriented x3 Skin: Normal Color, Warm/Dry Results Lab Laboratory Tests 07/17/21 05:03: White Blood Count 14.0H, Red Blood Count 3.78L, Hemoglobin 7.7L, Hematocrit 26L, Mean Corpuscular Volume 68L, Mean Corpuscular Hemoglobin 20L, Mean Corpuscular Hemoglobin Concent 30L, Red Cell Distribution Width 19.9H, Platelet Count 359, Mean Platelet Volume 9.4, Sodium Level 134L, Potassium Level 4.0, Chloride Level 99, Carbon Dioxide Level 23, Anion Gap 12, Blood Urea Nitrogen 8, Creatinine 0.63, Estimat Glomerular Filtration Rate 114, BUN/Creatinine Ratio 13, Glucose Level 83, Calcium Level 8.1L, Magnesium Level 1.8 Microbiology 07/13/21 MRSA Screen - Final, Complete MRSA not isolated Assessment/Plan Assessment/Plan Assessment/Plan A 55 year old male with Rectosigmoid mass, s/p laparoscopic hand-assisted low anterior resection with end-to-end anastomosis VSS WBC decreasing Continue pain control PRN Continue fluids, Convert to oral abx Okay to dc home Encouraged to continue ambulation and incentive spirometry JAYNE THORNTON DO July 17, 2021 13:15
[2021-07-17 16:02] VITALS: BP 137/81
[2021-07-17 16:17] VITALS: BP 137/81
== END 2021-07-17 17:05 | disposition home or self-care (01) | DRG 330 ==
LOC: 4TH 06:54 → SURG 06:55 → 4TH 12:10
PROVIDERS: ADMIT Surgery; ATTEND Surgery
PROC: 0DTN0ZZ Resection of Sigmoid Colon, Open Approach (ICD-10-PCS; principal; 2021-07-13 08:51)
DX: C18.7 Malignant neoplasm of sigmoid colon (principal); C78.7 Secondary malignant neoplasm of liver and intrahepatic bile duct; C77.2 Secondary and unspecified malignant neoplasm of intra-abdominal lymph nodes; D72.829 Elevated white blood cell count, unspecified; D64.9 Anemia, unspecified; D75.839 Thrombocytosis, unspecified; I10 Essential (primary) hypertension
CPT/HCPCS: 36415; 71045; 80048; 81000; 83735; 85027; 86850; 86900; 86901; 86920; 87081; 88305; 88309; 94664; 94760

== ENCOUNTER 2021-07-26 10:51 | Outpatient (RCR) | payer BC ==
[~2021-07-26 10:51] MED LIST changes: +ACHD5005 PO; +AMOX1TAB12 PO; +OMEP20TA56 PO
[2021-07-26 11:22] LABS: BASOPHILS # (AUTO) 0.1 10^3/uL (0.0-0.1); BASOPHILS % (AUTO) 1 % (0-10); EOSINOPHILS # (AUTO) 0.1 10^3/uL (0.0-0.3); EOSINOPHILS % (AUTO) 1 % (0-10); HEMATOCRIT 32 % (40-54); HEMOGLOBIN 9.2 g/dL (13.3-17.7); LYMPHOCYTES # (AUTO) 1.4 10^3/uL (1.0-4.0); LYMPHOCYTES % (AUTO) 12 % (12-44); MEAN CORPUSCULAR HEMOGLOBIN 20 pg (25-34); MEAN CORPUSCULAR HGB CONC 29 g/dL (32-36); MEAN CORPUSCULAR VOLUME 70 fL (80-99); MEAN PLATELET VOLUME 9.6 fL (9.0-12.2); MONOCYTES # (AUTO) 0.9 10^3/uL (0.0-1.0); MONOCYTES % (AUTO) 8 % (0-12); NEUTROPHILS % (AUTO) 78 % (42-75); PLATELET COUNT 716 10^3/uL (130-400); WHITE BLOOD COUNT 11.5 10^3/uL (4.3-11.0)
[2021-07-26 11:34] LABS: ALBUMIN 3.6 GM/DL (3.2-4.5); POTASSIUM 4.4 MMOL/L (3.6-5.0)
[2021-07-26 11:36] LABS: TOTAL PROTEIN 8.6 GM/DL (6.4-8.2)
[2021-07-26 11:38] LABS: BILIRUBIN,TOTAL 0.6 MG/DL (0.1-1.0)
[2021-07-26 11:40] LABS: CREATININE SERUM 0.71 MG/DL (0.60-1.30)
== END 2021-08-15 | disposition home or self-care (01) ==
LOC: ONC 10:51
PROVIDERS: ATTEND Internal Medicine Hematology & Oncology
DX: C18.7 Malignant neoplasm of sigmoid colon (principal); C78.7 Secondary malignant neoplasm of liver and intrahepatic bile duct; D50.0 Iron deficiency anemia secondary to blood loss (chronic); Z80.0 Family history of malignant neoplasm of digestive organs
CPT/HCPCS: 36415; 80053; 82378; 82728; 83540; 83550; 85025

== ENCOUNTER 2021-08-01 09:17 | Outpatient (CLI) | payer BC ==
[~2021-08-01] VITALS: Ht 190 cm; Wt 71.0 kg
== END 2021-08-01 11:12 | disposition home or self-care (01) ==
LOC: PREOP 09:17
PROVIDERS: ATTEND Surgery
DX: Z01.818 Encounter for other preprocedural examination (principal)

== ENCOUNTER 2021-08-03 10:47 | Day surgery (SDC) | payer BC ==
[2021-08-03] VITALS (8 sets, daily range): BP systolic 116–139; BP diastolic 79–87
[~2021-08-03] VITALS: Ht 190 cm; Wt 71.0 kg
[2021-08-03] MEDS ORDERED: ceFAZolin 2 GM IV Premixed 50 ML IV ONE (11:30)
[2021-08-03] MEDS ORDERED: LACTATED RINGERS 1,000 ML IV PRN (11:30)
--- NOTE | 2021-08-03 11:30 | Progress Note-Pre Operative ---
Pre-Operative Progress Note H&P Reviewed The H&P was reviewed, patient examined and no changes noted. Date Seen by Provider: August 03, 2021 Time Seen by Provider: 11: Date H&P Reviewed: August 03, 2021 Time H&P Reviewed: 11:29 Pre-Operative Diagnosis: colon cancer JAYNE THORNTON DO August 03, 2021 11:29
[2021-08-03] MEDS ORDERED: 0.9% SODIUM CHLORIDE PF INJ 20 ML VIAL ONE (12:39)
[2021-08-03] MEDS ORDERED: LIDOCAINE/EPI 1%-1:200,000 (XYLOCAINE) 30 ML VIAL ONE (12:39)
[2021-08-03] MEDS ORDERED: HEParin (CENTRAL IV FLUSH) 500 UNIT/5 ML SYR ONE (12:39)
[2021-08-03] MEDS ORDERED: MIDAZOLAM 2 MG/2 ML (VERSED) VIAL ONE ×2 (12:50→13:12)
[2021-08-03] MEDS ORDERED: MIDAZOLAM 2 MG/2 ML (VERSED) VIAL IVP ONE (13:00)
[2021-08-03] MEDS ORDERED: PROPOFOL INJECTION 50 ML IV ONE (13:12)
--- NOTE | 2021-08-03 13:55 | Progress Note-Post Operative ---
Post-Operative Progess Note Surgeon (s)/Woolen Suiting Shrinker (s) Surgeon JAYNE THORNTON DO [employer]en Suiting Shrinker: na Pre-Operative Diagnosis colon cancer Post-Operative Diagnosis same Procedure & Operative Findings Date of Procedure 08/03/21 Procedure Performed/Findings PROCEDURE: Right internal jugular port placement using ultrasound guidance. COMPLICATIONS: None. INDICATIONS: The patient is a 56 year old male with metastatic colon cancer. Patient understands the risks and benefits of port placement and wished to proceed with the procedure. Consent was signed on the chart. PROCEDURE: The patient was taken to the operating suite, was prepped and draped in the sterile fashion. A surgical pause was performed. Ultrasound was used to locate the internal jugular vein. Once located anesthetic was infiltrated above it. Using micro-access kit, the right internal vein was accessed. Dark nonpulsatile blood was withdrawn. The wire was inserted. Fluoroscopy assured proper placement. The needle was removed. The micro-access dilator was advanced over the wire and the wire was removed. The regular wire was inserted and fluoroscopy assured proper placement. The wire was then secured. Local anesthetic was used to anesthetize from the neck for tunneling down to the right chest and for pocket creation. A 15 blade scalpel was used to make an incision over the right chest. Cautery was used to dissect down to the pectoral fascia. A pocket was created with blunt dissection. The dilator sheath was then advanced over the wire under fluoroscopy and the dilator and wire were removed. The Groshong catheter was inserted through the sheath and the sheath was then removed. The Groshong wire was removed. The catheter was then tunneled to the right chest pocket. Fluoroscopy was used to cut to length and this was then attached to the port which was then placed within the pocket. The port was then accessed without difficulty. It was then flushed with saline and then heparin. The subcutaneous tissues were then reapproximated using 3-0 Vicryl. The areas were then washed and dried. Skin Affix was placed over incision. The insertion point of the neck Skin Affix was placed over the incision. The patient tolerated the procedure well without complication and was taken to recovery room in stable condition. Chest x-ray is pending. Anesthesia Type mac c local Estimated Blood Loss Estimated blood loss (mL): minimal Specimens/Packing Specimens Removed JAYNE Alfaro DO August 03, 2021 13:55
--- NOTE | 2021-08-03 13:56 | Discharge Inst-Simple/Standard ---
Discharge Inst-Standard Patient Instructions/Follow Up Plan of Care/Instructions/FU: 2 weeks [place] Activity as Tolerated: No Discharge Diet: Regular Diet Other Inst to Patient Follow up Appt: Make appointment for 2 week. Instructions: No lifting greater than 10 pounds. No strenuous activity. May shower in 24 hours, no tub bath or soaking. Use incentive spirometer at home as directed. No Smoking Skin/Wound Care: You have special glue over your incision that will fall off on it's own. Ice pack over right chest for 15 min and remove for 30 min and repeat for first 48 hours. This reduces swelling and discomfort. Symptoms to Report: Appetite Changes, Extremity Discoloration, Numbness/Tingling, Swelling Increased, Bleeding Excessive, Eyesight Changes, Pain Increased, Urine Color Change, Constipation(Persistent), Fever over 101 degree F, Pain/Pressure in chest, Urinating Difficulty, Cough Up/Vomit Blood, Heart Beat Irreg/Pounding, Pain/Pressure in jaw, Vaginal Bleeding Increase, Cramps in feet or legs, Lightheadedness, Pain/Pressure in shoulder, Diarrhea(Persistent), Memory Changes Suddenly, Questions/Concerns, Weight gain consecutive days, Dizziness/Fainting, Nausea/Vomiting, Shortness of Breath, Weight gain over 2 pounds If questions or concerns contact your physician Or seek help at emergency department. JAYNE THORNTON DO August 03, 2021 13:56
[2021-08-03] MEDS ORDERED: ONDANSETRON 4 MG/2 ML (SDV) Z0FRAN IVP PRN (14:15)
[2021-08-03] MEDS ORDERED: PROMETHAZINE INJ 25 MG/ML (PHENERGAN) AMP IVP ONE (14:15)
[2021-08-03] MEDS ORDERED: morphine INJ 10 MG/ML 1ML (SYR OR VIAL) IVP ONE (14:15)
--- NOTE | 2021-08-03 14:30 | Diagnostic Imaging Report ---
EXAMINATION: Chest 1 view HISTORY: POST OP RIGHT CHEST PORT PLACEMENT COMPARISON: 07/15/2021 FINDINGS: Heart size and pulmonary vasculature are normal. There are low lung volumes. No pleural effusion or pneumothorax. A right-sided Port-A-Cath is present with the tip projecting over the SVC. Likely external bandage overlying the right upper chest. The osseous structures are intact. IMPRESSION: 1. Right-sided Port-A-Cath placement with the tip projecting over the SVC. No pneumothorax. Dictated by: Dictated on workstation # [id number]
--- NOTE | 2021-08-03 14:56 | Diagnostic Imaging Report ---
INDICATION: Port-A-Cath placement. COMPARISON: None. TOTAL FLUOROSCOPY TIME: 15 seconds. TOTAL NUMBER OF FLUOROSCOPIC IMAGES SAVED: 2. FINDINGS: Multiple intraoperative image intensifier views of the chest were obtained during Port-A-Cath placement. Images provided show right internal jugular approach. Central tip terminates in the low SVC. Evaluation for pneumothorax is suboptimal given fluoroscopic modality. Please note, interpreting radiologist was not present during the procedure. IMPRESSION: Fluoroscopic guidance provided during Port-A-Cath placement, as above. Dictated by: Dictated on workstation # [id number]
--- NOTE | 2021-08-03 15:45 | Anesthesia-General Post-Op ---
MAC Patient Condition Mental Status/LOC: Same as Preop Cardiovascular: Satisfactory Nausea/Vomiting: Absent Respiratory: Satisfactory Pain: Controlled Complications: Absent Post Op Complications Complications None Follow Up Care/Instructions Patient Instructions None needed. Anesthesiology Discharge Order Discharge Order Patient is doing well, no complaints, stable vital signs, no apparent adverse anesthesia problems. No complications reported per nursing. ANEL VILLEGAS CRNA August 03, 2021 15:45
== END 2021-08-03 15:10 | disposition home or self-care (01) ==
LOC: SDC 10:47
PROVIDERS: ATTEND Surgery
DX: C18.7 Malignant neoplasm of sigmoid colon (principal); C78.7 Secondary malignant neoplasm of liver and intrahepatic bile duct
CPT/HCPCS: 36561; 71045; 76000; 87081; C1788

== ENCOUNTER 2021-12-02 11:18 | Emergency (ER) | payer BC ==
[~2021-12-02] VITALS: Ht 185 cm; Wt 72.0 kg
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
[2021-12-02 12:12] LABS: BASOPHILS % (AUTO) 0 % (0-10); EOSINOPHILS % (AUTO) 0 % (0-10)
[2021-12-02 12:14] LABS: HEMATOCRIT 22 % (40-54); LYMPHOCYTES # (AUTO) 0.9 10^3/uL (1.0-4.0); LYMPHOCYTES % (AUTO) 8 % (12-44); MEAN CORPUSCULAR HEMOGLOBIN 25 pg (25-34); MEAN CORPUSCULAR HGB CONC 30 g/dL (32-36); MEAN CORPUSCULAR VOLUME 83 fL (80-99); MEAN PLATELET VOLUME 11.2 fL (9.0-12.2); MONOCYTES # (AUTO) 1.4 10^3/uL (0.0-1.0); MONOCYTES % (AUTO) 13 % (0-12); NEUTROPHILS # (AUTO) 7.5 10^3/uL (1.8-7.8); NEUTROPHILS % (AUTO) 68 % (42-75); PLATELET COUNT 133 10^3/uL (130-400); WHITE BLOOD COUNT 11.1 10^3/uL (4.3-11.0)
[2021-12-02 12:18] LABS: HEMOGLOBIN 6.5 g/dL (13.3-17.7)
[2021-12-02] MEDS ORDERED: NS (IVPB) 250 ML ONE (13:16)
[2021-12-02 13:26] LABS: BAND NEUTROPHILS 4 %; LYMPHOCYTES % (MANUAL) 6 %; MONOCYTES % (MANUAL) 7 %; NEUTROPHILS % (MANUAL) 82 %
[2021-12-02 13:27] LABS: ANISOCYTOSIS MODERATE; METAMYELOCYTES % 1 %; POLYCHROMASIA SLIGHT
[2021-12-02 13:28] LABS: TEAR DROP CELLS SLIGHT
[2021-12-02 13:29] VITALS: BP 113/81
[2021-12-02 13:45] VITALS: BP 114/75
[2021-12-02] MEDS ORDERED: HEParin (CENTRAL IV FLUSH) 500 UNIT/5 ML SYR IV ONE (15:00)
== END 2021-12-02 16:32 | disposition home or self-care (01) ==
LOC: EDUNIT# 11:18 → ER 11:21
DX: C78.7 Secondary malignant neoplasm of liver and intrahepatic bile duct (principal); C18.9 Malignant neoplasm of colon, unspecified; D64.9 Anemia, unspecified
CPT/HCPCS: 85007; 85027; 86850; 86900; 86901; 86920; 99284; P9016; 36415